=== PATIENT | female | born 1985 | race Caucasian/White ===

== ENCOUNTER 2018-01-16 12:49 | Emergency (ER) | payer MEDICAID ==
[~2018-01-16] VITALS: Ht 160 cm; Wt 65.9 kg
[~2018-01-16 12:49] MED LIST: BENZ2TAB58 PO; HALO10 PO; QUET200T PO
[2018-01-16 16:00] LABS: AMPHET/METH SCREEN,URINE NEGATIVE (NEGATIVE); BARBITURATE SCREEN, URINE NEGATIVE (NEGATIVE); BENZODIAZEPINES SCREEN,URINE NEGATIVE (NEGATIVE); CANNABINOID SCREEN,URINE NEGATIVE (NEGATIVE); COCAINE SCREEN,URINE NEGATIVE (NEGATIVE); METHADONE SCREEN, URINE NEGATIVE (NEGATIVE); OPIATE SCREEN,URINE NEGATIVE (NEGATIVE)
[2018-01-16 16:01] LABS: PHENCYCLIDINE SCREEN,URINE NEGATIVE (NEGATIVE)
[2018-01-16 16:20] LABS: APPEARANCE,URINE CLOUDY (CLEAR); BILIRUBIN,URINE NEGATIVE (NEGATIVE); GLUCOSE, URINE (UA) NEGATIVE (NEGATIVE); KETONES,URINE NEGATIVE (NEGATIVE); LEUKOCYTE ESTERASE ,URINE LARGE (NEGATIVE); NITRATE,URINE NEGATIVE (NEGATIVE); OCCULT BLOOD,URINE LARGE (NEGATIVE); PROTEIN,URINE POS 1+ (NEGATIVE); UROBILINOGEN,URINE 0.2 mg/dL (<=1.0)
[2018-01-16 16:22] LABS: EOSINOPHILS % (AUTO) 0.2 % (1.0-6.0); HEMATOCRIT 34.8 % (36-46); LYMPHOCYTES # (AUTO) 2.2 K/uL (1.0-4.8); LYMPHOCYTES % (AUTO) 36.9 % (22.0-44.0); MEAN CORPUSCULAR HEMOGLOBIN 24.6 pg (26.0-34.0); MEAN CORPUSCULAR HGB CONC 31.7 G/dL (31.0-37.0); MEAN CORPUSCULAR VOLUME 78 fL (80-100); MONOCYTES # (AUTO) 0.5 K/uL (0.1-1.0); MONOCYTES % (AUTO) 7.9 % (2.0-9.0); NEUTROPHILS # (AUTO) 3.3 K/uL (1.8-7.7); PLATELET COUNT (AUTO) 325 K/uL (150-450); RED BLOOD CELL COUNT(AUTO) 4.48 MIL/uL (4.00-5.20); RED CELL DISTRIBUTION WIDTH 19.6 % (11.5-14.5)
[2018-01-16 16:28] LABS: RBC,URINE 51-100 /HPF (0-2)
[2018-01-16 16:29] LABS: BACTERIA,URINE Moderate /HPF (None Seen); SQUAMOUS EPITHELIAL CELL,UR Few /LPF (None Seen); WBC,URINE 51-100 /HPF (0-5)
[2018-01-16 16:30] VITALS: BP 110/74
[2018-01-16 16:34] LABS: ANION GAP 10 mmol/L (8-16); CALCIUM, TOTAL 8.8 mg/dL (8.8-10.5); CARBON DIOXIDE 25 mmol/L (22-29); CHLORIDE 106 mmol/L (98-107); CREATININE 0.51 mg/dL (0.60-1.30); GLOMERULAR FILTR. RATE CALC > 60 mL/min (>60); GLUCOSE,RANDOM 91 mg/dL (70-110); SODIUM SERUM 141 mmol/L (136-145); UREA NITROGEN, BLOOD 10 mg/dL (7-18)
[2018-01-16 16:41] LABS: ALANINE AMINOTRANSFERASE 40 U/L (12-78); ALBUMIN 3.4 g/dL (3.4-5.0); ALKALINE PHOSPHATASE 101 U/L (46-116); ASPARTATE AMINOTRANSFERASE 26 U/L (15-37); BILIRUBIN,TOTAL 0.2 mg/dL (0.1-1.0)
== END 2018-01-16 18:00 | disposition home or self-care (01) ==
LOC: EMS 12:50
DX: F41.9 Anxiety disorder, unspecified (principal); N39.0 Urinary tract infection, site not specified; F31.9 Bipolar disorder, unspecified; F20.9 Schizophrenia, unspecified; F19.90 Other psychoactive substance use, unspecified, uncomplicated; Z88.8 Allergy status to other drugs, medicaments and biological substances
CPT/HCPCS: 87086; 93005; 99285

== ENCOUNTER 2018-02-07 13:13 | Inpatient (IN) | payer MEDICAID ==
[~2018-02-07] VITALS: Ht 157.5 cm; Wt 73.6 kg
[2018-02-07 12:30] VITALS: BP 104/89
[2018-02-07] MEDS ORDERED: ZOLPIDEM TARTRATE 10 MG TABLET PO PRN (13:30)
[2018-02-07] MEDS ORDERED: HALOPERIDOL 5 MG TABLET PO PRN (13:30)
[2018-02-07 14:58] LABS: EOSINOPHILS % (AUTO) 0.5 % (1.0-6.0); HEMATOCRIT 36.9 % (36-46); HEMOGLOBIN 11.7 g/dL (12.0-16.0); LYMPHOCYTES # (AUTO) 2.8 K/uL (1.0-4.8); LYMPHOCYTES % (AUTO) 29.8 % (22.0-44.0); MEAN CORPUSCULAR HEMOGLOBIN 25.3 pg (26.0-34.0); MEAN CORPUSCULAR HGB CONC 31.8 G/dL (31.0-37.0); MEAN CORPUSCULAR VOLUME 80 fL (80-100); MONOCYTES # (AUTO) 0.8 K/uL (0.1-1.0); MONOCYTES % (AUTO) 8.3 % (2.0-9.0); NEUTROPHILS # (AUTO) 5.7 K/uL (1.8-7.7); NEUTROPHILS % (AUTO) 60.4 % (40.0-70.0); PLATELET COUNT (AUTO) 294 K/uL (150-450); RED BLOOD CELL COUNT(AUTO) 4.64 MIL/uL (4.00-5.20); RED CELL DISTRIBUTION WIDTH 17.2 % (11.5-14.5)
[2018-02-07 15:19] LABS: ANION GAP 11 mmol/L (8-16); CALCIUM, TOTAL 9.4 mg/dL (8.8-10.5); CARBON DIOXIDE 24 mmol/L (22-29); CHLORIDE 103 mmol/L (98-107); CREATININE 0.66 mg/dL (0.60-1.30); GLOMERULAR FILTR. RATE CALC > 60 mL/min (>60); GLUCOSE,RANDOM 97 mg/dL (70-110); POTASSIUM 3.8 mmol/L (3.5-5.1); SODIUM SERUM 138 mmol/L (136-145); UREA NITROGEN, BLOOD 12 mg/dL (7-18)
[2018-02-07 15:24] LABS: ALANINE AMINOTRANSFERASE 39 U/L (12-78); ALKALINE PHOSPHATASE 88 U/L (46-116); ASPARTATE AMINOTRANSFERASE 29 U/L (15-37); BILIRUBIN,TOTAL 0.6 mg/dL (0.1-1.0); TOTAL PROTEIN, SERUM 7.5 g/dL (6.4-8.2)
[2018-02-07] MEDS ORDERED: FLUO-191 PO (16:03)
[2018-02-07 17:45] VITALS: BP 126/69
[2018-02-07] MEDS: LORazepam 2 MG TABLET PO PRN (17:56)
[2018-02-07] MEDS ORDERED: MAGNESIUM HYDROXIDE SUSPENSION 30 ML UDCUP PO PRN (18:45)
[2018-02-07] MEDS ORDERED: LOPERAMIDE HCL 2 MG CAPSULE PO PRN (18:45)
[2018-02-07] MEDS ORDERED: PETROLATUM,WHITE 71 GM JELLY TP PRN (18:45)
[2018-02-07] MEDS ORDERED: GuaiFENesin/D-METHORPHAN [SUGAR-FREE] 200-20MG/10 ML SYRUP UDCUP PO PRN (18:45)
[2018-02-07] MEDS ORDERED: MAG HYDROX/AL HYDROX/SIMETH ES 30 ML SUSPENSION UDCUP PO PRN (18:45)
[2018-02-07] MEDS ORDERED: DOCUSATE SODIUM 100 MG CAPSULE PO PRN (18:45)
[2018-02-07] MEDS ORDERED: NICOTINE 14 MG/24 HOUR PATCH TD PRN (18:45)
[2018-02-07] MEDS ORDERED: CloNIDine HCL 0.1 MG TABLET PO PRN (18:45)
[2018-02-07] MEDS ORDERED: ONDANSETRON HCL 4 MG TABLET PO PRN (18:45)
[2018-02-07] MEDS ORDERED: ACETAMINOPHEN 325 MG TABLET PO PRN (18:45)
[2018-02-07] MEDS ORDERED: ALBUTEROL SULFATE HFA 90 MCG/PUFF 8 GM INHALER IH PRN (18:45)
[2018-02-07] MEDS: LevETIRAcetam 500 MG TABLET PO SCH (19:48)
[2018-02-08 06:11] VITALS: BP 106/67
[2018-02-08 08:39] VITALS: BP 93/68
[2018-02-08 08:42] LABS: BASOPHILS % (AUTO) 0.7 % (0.0-2.0); EOSINOPHILS % (AUTO) 0.5 % (1.0-6.0); HEMATOCRIT 36.4 % (36-46); HEMOGLOBIN 11.8 g/dL (12.0-16.0); LYMPHOCYTES # (AUTO) 1.9 K/uL (1.0-4.8); LYMPHOCYTES % (AUTO) 43.8 % (22.0-44.0); MEAN CORPUSCULAR HEMOGLOBIN 25.7 pg (26.0-34.0); MEAN CORPUSCULAR HGB CONC 32.4 G/dL (31.0-37.0); MEAN CORPUSCULAR VOLUME 79 fL (80-100); MONOCYTES # (AUTO) 0.3 K/uL (0.1-1.0); MONOCYTES % (AUTO) 8.1 % (2.0-9.0); NEUTROPHILS % (AUTO) 46.9 % (40.0-70.0); PLATELET COUNT (AUTO) 270 K/uL (150-450); RED CELL DISTRIBUTION WIDTH 17.1 % (11.5-14.5)
[2018-02-08] MEDS ORDERED: LevETIRAcetam 500 MG TABLET PO SCH (09:00)
[2018-02-08 09:04] LABS: HEMOGLOBIN A1C 5.1 % (4.5-6.2)
[2018-02-08 09:33] LABS: ALANINE AMINOTRANSFERASE 35 U/L (12-78); ALBUMIN 3.6 g/dL (3.4-5.0); ALKALINE PHOSPHATASE 85 U/L (46-116); ANION GAP 11 mmol/L (8-16); ASPARTATE AMINOTRANSFERASE 24 U/L (15-37); BILIRUBIN,TOTAL 0.6 mg/dL (0.1-1.0); CARBON DIOXIDE 25 mmol/L (22-29); CHLORIDE 103 mmol/L (98-107); CHOLESTEROL 145 mg/dL (131-200); CREATININE 0.51 mg/dL (0.60-1.30); GLOMERULAR FILTR. RATE CALC > 60 mL/min (>60); GLUCOSE,RANDOM 83 mg/dL (70-110); HDL CHOLESTEROL 74 mg/dL (40-60); LDL CHOL (CALC.) 62 mg/dL (0-130); POTASSIUM 4.4 mmol/L (3.5-5.1); SODIUM SERUM 139 mmol/L (136-145); THYROID STIMULATING HORMONE 1.15 uIU/mL (0.36-3.74); TOTAL PROTEIN, SERUM 6.6 g/dL (6.4-8.2); TRIGLYCERIDES 43 mg/dL (15-150); UREA NITROGEN, BLOOD 11 mg/dL (7-18)
[2018-02-08] MEDS: LevETIRAcetam 500 MG TABLET PO SCH ×2 (09:47→16:50)
[2018-02-08 17:14] VITALS: BP 107/58
[2018-02-08] MEDS: IBUPROFEN 400 MG TABLET PO PRN (17:29)
[2018-02-08] MEDS: LORazepam 2 MG TABLET PO PRN (18:23)
[2018-02-09 06:10] VITALS: BP 108/62
[2018-02-09 08:00] VITALS: BP 112/68
[2018-02-09] MEDS: LevETIRAcetam 500 MG TABLET PO SCH ×2 (08:52→16:06)
[2018-02-09] MEDS: ARIPiprazole 10 MG TABLET PO SCH (08:52)
[2018-02-09] MEDS: FLUoxetine HCL 20 MG CAPSULE PO SCH (08:52)
[2018-02-09] MEDS: LORazepam 2 MG TABLET PO PRN (09:26)
[2018-02-09 16:05] VITALS: BP 102/60
[2018-02-10 05:50] VITALS: BP 110/62
[2018-02-10 08:20] VITALS: BP 113/77
[2018-02-10 08:23] LABS: BASOPHILS % (AUTO) 0.3 % (0.0-2.0); EOSINOPHILS % (AUTO) 0.3 % (1.0-6.0); HEMATOCRIT 35.4 % (36-46); HEMOGLOBIN 11.5 g/dL (12.0-16.0); LYMPHOCYTES # (AUTO) 2.3 K/uL (1.0-4.8); LYMPHOCYTES % (AUTO) 46.6 % (22.0-44.0); MEAN CORPUSCULAR HEMOGLOBIN 25.6 pg (26.0-34.0); MEAN CORPUSCULAR HGB CONC 32.4 G/dL (31.0-37.0); MEAN CORPUSCULAR VOLUME 79 fL (80-100); MONOCYTES # (AUTO) 0.4 K/uL (0.1-1.0); MONOCYTES % (AUTO) 7.2 % (2.0-9.0); NEUTROPHILS # (AUTO) 2.3 K/uL (1.8-7.7); NEUTROPHILS % (AUTO) 45.6 % (40.0-70.0); PLATELET COUNT (AUTO) 269 K/uL (150-450); RED BLOOD CELL COUNT(AUTO) 4.47 MIL/uL (4.00-5.20); RED CELL DISTRIBUTION WIDTH 16.8 % (11.5-14.5)
[2018-02-10] MEDS: FLUoxetine HCL 20 MG CAPSULE PO SCH (09:04)
[2018-02-10] MEDS: ARIPiprazole 10 MG TABLET PO SCH (09:04)
[2018-02-10] MEDS: LevETIRAcetam 500 MG TABLET PO SCH ×2 (09:04→16:33)
[2018-02-10 16:11] VITALS: BP 109/65
[2018-02-11 06:22] VITALS: BP 115/69
[2018-02-11] MEDS: FERROUS SULFATE 325 MG EC TABLET PO SCH ×3 (06:34→16:14)
[2018-02-11 08:27] VITALS: BP 110/53
[2018-02-11] MEDS: FLUoxetine HCL 20 MG CAPSULE PO SCH (08:27)
[2018-02-11] MEDS: LevETIRAcetam 500 MG TABLET PO SCH ×2 (08:27→16:13)
[2018-02-11] MEDS: ARIPiprazole 10 MG TABLET PO SCH (08:27)
[2018-02-11] MEDS: LORazepam 2 MG TABLET PO PRN (09:13)
[2018-02-11 16:12] VITALS: BP 110/66
[2018-02-12 04:25] VITALS: BP 106/62
[2018-02-12] MEDS: FERROUS SULFATE 325 MG EC TABLET PO SCH ×3 (06:35→16:11)
[2018-02-12 08:33] VITALS: BP 111/62
[2018-02-12] MEDS: LevETIRAcetam 500 MG TABLET PO SCH ×2 (09:13→16:11)
[2018-02-12] MEDS: FLUoxetine HCL 20 MG CAPSULE PO SCH (09:13)
[2018-02-12] MEDS: ARIPiprazole 15 MG TABLET PO SCH (09:13)
[2018-02-12 16:03] VITALS: BP 110/80
[2018-02-12] MEDS: IBUPROFEN 400 MG TABLET PO PRN (17:09)
[2018-02-12] MEDS: HYPROMELLOSE 0.5% 15 ML OPHTHALMIC SOLUTION OU PRN (21:51)
[2018-02-13] VITALS (12 sets, daily range): BP systolic 108–129; BP diastolic 60–76
[2018-02-13] MEDS: FERROUS SULFATE 325 MG EC TABLET PO SCH ×3 (06:44→16:44)
[2018-02-13] MEDS: LevETIRAcetam 500 MG TABLET PO SCH ×2 (08:49→16:44)
[2018-02-13] MEDS: IBUPROFEN 400 MG TABLET PO PRN (08:49)
[2018-02-13] MEDS: ARIPiprazole 15 MG TABLET PO SCH (08:49)
[2018-02-13] MEDS: FLUoxetine HCL 20 MG CAPSULE PO SCH (08:49)
[2018-02-13] MEDS: HYPROMELLOSE 0.5% 15 ML OPHTHALMIC SOLUTION OU PRN ×2 (09:15→15:00)
[2018-02-13] MEDS ORDERED: LEVE500T53 PO (19:58)
[2018-02-14 01:00] VITALS: BP 108/62
[2018-02-14] MEDS: FERROUS SULFATE 325 MG EC TABLET PO SCH ×3 (06:57→16:51)
[2018-02-14] MEDS: LevETIRAcetam 500 MG TABLET PO SCH ×2 (09:30→16:51)
[2018-02-14] MEDS: FLUoxetine HCL 20 MG CAPSULE PO SCH (09:30)
[2018-02-14] MEDS: ARIPiprazole 15 MG TABLET PO SCH (09:31)
[2018-02-14] MEDS: LORazepam 2 MG TABLET PO PRN (16:51)
[2018-02-14 19:50] VITALS: BP 111/66
[2018-02-15] MEDS: FERROUS SULFATE 325 MG EC TABLET PO SCH ×2 (06:52→14:01)
[2018-02-15 08:05] VITALS: BP 116/71
[2018-02-15] MEDS: ARIPiprazole 15 MG TABLET PO SCH (09:08)
[2018-02-15] MEDS: LevETIRAcetam 500 MG TABLET PO SCH (09:09)
[2018-02-15] MEDS: FLUoxetine HCL 20 MG CAPSULE PO SCH (09:09)
[2018-02-15] MEDS ORDERED: FERR-89 PO (13:37)
[2018-02-15] MEDS ORDERED: ARIP15TA2 PO (13:37)
== END 2018-02-15 15:45 | disposition home or self-care (01) | DRG 750 ==
LOC: BV PSY EVL 13:13 → B2S 17:34 → 3EI 02-14 00:04
DX: F25.1 Schizoaffective disorder, depressive type (principal); G40.909 Epilepsy, unspecified, not intractable, without status epilepticus; R45.851 Suicidal ideations; D64.9 Anemia, unspecified; F10.10 Alcohol abuse, uncomplicated; F15.10 Other stimulant abuse, uncomplicated; D72.819 Decreased white blood cell count, unspecified; F41.9 Anxiety disorder, unspecified; F19.10 Other psychoactive substance abuse, uncomplicated; Z79.899 Other long term (current) drug therapy; Z91.5 Personal history of self-harm; Z88.8 Allergy status to other drugs, medicaments and biological substances; Z71.51 Drug abuse counseling and surveillance of drug abuser; Z71.41 Alcohol abuse counseling and surveillance of alcoholic
CPT/HCPCS: 70450; 83036; 84443; 87081; 99285; G0480

== ENCOUNTER 2018-02-13 19:36 | Emergency (ER) | payer MEDICAID ==
[~2018-02-13] VITALS: Ht 157.5 cm; Wt 80.0 kg
[~2018-02-13 19:36] MED LIST changes: +FLUO-191 PO
[2018-02-13] MEDS ORDERED: LEVE500T53 PO (19:58)
[2018-02-13 20:45] LABS: BASOPHILS % (AUTO) 0.7 % (0.0-2.0); EOSINOPHILS % (AUTO) 0.3 % (1.0-6.0); HEMATOCRIT 35.9 % (36-46); HEMOGLOBIN 11.5 g/dL (12.0-16.0); LYMPHOCYTES # (AUTO) 2.5 K/uL (1.0-4.8); LYMPHOCYTES % (AUTO) 41.9 % (22.0-44.0); MEAN CORPUSCULAR HEMOGLOBIN 25.5 pg (26.0-34.0); MEAN CORPUSCULAR HGB CONC 32.1 G/dL (31.0-37.0); MEAN CORPUSCULAR VOLUME 80 fL (80-100); MONOCYTES # (AUTO) 0.5 K/uL (0.1-1.0); MONOCYTES % (AUTO) 8.2 % (2.0-9.0); NEUTROPHILS # (AUTO) 2.9 K/uL (1.8-7.7); NEUTROPHILS % (AUTO) 48.9 % (40.0-70.0); PLATELET COUNT (AUTO) 262 K/uL (150-450); RED BLOOD CELL COUNT(AUTO) 4.51 MIL/uL (4.00-5.20); RED CELL DISTRIBUTION WIDTH 16.9 % (11.5-14.5)
[2018-02-13 20:58] LABS: ANION GAP 8 mmol/L (8-16); CALCIUM, TOTAL 8.5 mg/dL (8.8-10.5); CARBON DIOXIDE 26 mmol/L (22-29); CHLORIDE 106 mmol/L (98-107); CREATININE 0.71 mg/dL (0.60-1.30); GLOMERULAR FILTR. RATE CALC > 60 mL/min (>60); GLUCOSE,RANDOM 91 mg/dL (70-110); POTASSIUM 4.2 mmol/L (3.5-5.1); SODIUM SERUM 140 mmol/L (136-145); UREA NITROGEN, BLOOD 15 mg/dL (7-18)
[2018-02-13 21:04] LABS: ALANINE AMINOTRANSFERASE 39 U/L (12-78); ALBUMIN 3.3 g/dL (3.4-5.0); ALKALINE PHOSPHATASE 78 U/L (46-116); ASPARTATE AMINOTRANSFERASE 20 U/L (15-37); BILIRUBIN,TOTAL 0.1 mg/dL (0.1-1.0); TOTAL PROTEIN, SERUM 6.6 g/dL (6.4-8.2)
[2018-02-13] MEDS ORDERED: LORazepam 2 MG TABLET PO ONE (22:00)
[2018-02-13] MEDS ORDERED: LevETIRAcetam 500 MG TABLET PO ONE (22:00)
[2018-02-13 23:48] VITALS: BP 113/66
[2018-02-15] MEDS ORDERED: FERR-89 PO (13:37)
[2018-02-15] MEDS ORDERED: ARIP15TA2 PO (13:37)
== END 2018-02-14 00:48 | disposition other institution (70) ==
LOC: EMS 19:37
DX: G40.909 Epilepsy, unspecified, not intractable, without status epilepticus (principal); F31.9 Bipolar disorder, unspecified; F20.9 Schizophrenia, unspecified; Z79.899 Other long term (current) drug therapy; Z88.8 Allergy status to other drugs, medicaments and biological substances
CPT/HCPCS: 99285

== ENCOUNTER 2018-03-21 11:16 | Emergency (ER) | payer MEDICAID ==
[~2018-03-21] VITALS: Ht 157.5 cm; Wt 76.4 kg
[~2018-03-21 11:16] MED LIST changes: +ARIP882S IM; -BENZ2TAB58 PO; +FERR-89 PO; -HALO10 PO; +LEVE500T53 PO; -QUET200T PO
[2018-03-21] MEDS ORDERED: ARIP15TA2 PO (11:37)
[2018-03-21] MEDS ORDERED: LORazepam 2 MG/ML VIAL IM ONE (12:00)
[2018-03-21 12:30] VITALS: BP 110/61
== END 2018-03-21 13:11 | disposition home or self-care (01) ==
LOC: EMS 11:17
DX: G40.909 Epilepsy, unspecified, not intractable, without status epilepticus (principal); F31.9 Bipolar disorder, unspecified; F20.9 Schizophrenia, unspecified; Z88.8 Allergy status to other drugs, medicaments and biological substances
CPT/HCPCS: 96372; 99283; J2060

== ENCOUNTER 2018-03-23 11:50 | Inpatient (IN) | payer MEDICAID ==
[~2018-03-23] VITALS: Ht 157.5 cm; Wt 74.8 kg
[~2018-03-23 11:50] MED LIST changes: +ARIP15TA2 PO
[2018-03-23 12:59] LABS: AMPHET/METH SCREEN,URINE NEGATIVE (NEGATIVE); BARBITURATE SCREEN, URINE NEGATIVE (NEGATIVE); BENZODIAZEPINES SCREEN,URINE NEGATIVE (NEGATIVE); CANNABINOID SCREEN,URINE NEGATIVE (NEGATIVE); COCAINE SCREEN,URINE NEGATIVE (NEGATIVE); METHADONE SCREEN, URINE NEGATIVE (NEGATIVE); OPIATE SCREEN,URINE NEGATIVE (NEGATIVE); PHENCYCLIDINE SCREEN,URINE NEGATIVE (NEGATIVE)
[2018-03-23 13:04] LABS: BASOPHILS % (AUTO) 0.7 % (0.0-2.0); EOSINOPHILS % (AUTO) 0 % (1.0-6.0); HEMATOCRIT 38.8 % (36-46); HEMOGLOBIN 12.5 g/dL (12.0-16.0); LYMPHOCYTES # (AUTO) 1.9 K/uL (1.0-4.8); LYMPHOCYTES % (AUTO) 28.8 % (22.0-44.0); MEAN CORPUSCULAR HEMOGLOBIN 26.7 pg (26.0-34.0); MEAN CORPUSCULAR HGB CONC 32.3 G/dL (31.0-37.0); MEAN CORPUSCULAR VOLUME 83 fL (80-100); MONOCYTES # (AUTO) 0.3 K/uL (0.1-1.0); MONOCYTES % (AUTO) 4.6 % (2.0-9.0); NEUTROPHILS # (AUTO) 4.3 K/uL (1.8-7.7); NEUTROPHILS % (AUTO) 65.9 % (40.0-70.0); PLATELET COUNT (AUTO) 290 K/uL (150-450); RED CELL DISTRIBUTION WIDTH 17.8 % (11.5-14.5)
[2018-03-23 13:08] LABS: ANION GAP 7 mmol/L (8-16); CALCIUM, TOTAL 8.7 mg/dL (8.8-10.5); CARBON DIOXIDE 28 mmol/L (22-29); CHLORIDE 102 mmol/L (98-107); CREATININE 0.59 mg/dL (0.60-1.30); GLOMERULAR FILTR. RATE CALC > 60 mL/min (>60); GLUCOSE,RANDOM 94 mg/dL (70-110); POTASSIUM 4.6 mmol/L (3.5-5.1); SODIUM SERUM 137 mmol/L (136-145); UREA NITROGEN, BLOOD 7 mg/dL (7-18)
[2018-03-23 13:15] LABS: ALANINE AMINOTRANSFERASE 27 U/L (12-78); ALBUMIN 3.5 g/dL (3.4-5.0); ALKALINE PHOSPHATASE 78 U/L (46-116); ASPARTATE AMINOTRANSFERASE 17 U/L (15-37); BILIRUBIN,TOTAL 0.4 mg/dL (0.1-1.0); TOTAL PROTEIN, SERUM 6.9 g/dL (6.4-8.2)
[2018-03-23] MEDS ORDERED: ZOLPIDEM TARTRATE 10 MG TABLET PO PRN (13:15)
[2018-03-23 13:33] LABS: HCG,QUANTITATIVE < 1 mIU/mL (0-6)
[2018-03-23 16:00] VITALS: BP 113/73
[2018-03-23] MEDS ORDERED: GuaiFENesin/D-METHORPHAN [SUGAR-FREE] 200-20MG/10 ML SYRUP UDCUP PO PRN (17:15)
[2018-03-23] MEDS ORDERED: ALBUTEROL SULFATE HFA 90 MCG/PUFF 8 GM INHALER IH PRN (17:15)
[2018-03-23] MEDS ORDERED: DOCUSATE SODIUM 100 MG CAPSULE PO PRN (17:15)
[2018-03-23] MEDS ORDERED: ACETAMINOPHEN 325 MG TABLET PO PRN (17:15)
[2018-03-23] MEDS ORDERED: LevETIRAcetam 500 MG TABLET PO SCH (17:15)
[2018-03-23] MEDS ORDERED: PETROLATUM,WHITE 71 GM JELLY TP PRN (17:15)
[2018-03-23] MEDS ORDERED: LOPERAMIDE HCL 2 MG CAPSULE PO PRN (17:15)
[2018-03-23] MEDS ORDERED: MAGNESIUM HYDROXIDE SUSPENSION 30 ML UDCUP PO PRN (17:15)
[2018-03-23] MEDS: FERROUS SULFATE 325 MG EC TABLET PO SCH (17:15)
[2018-03-23] MEDS ORDERED: ONDANSETRON HCL 4 MG TABLET PO PRN (17:15)
[2018-03-23] MEDS ORDERED: MAG HYDROX/AL HYDROX/SIMETH ES 30 ML SUSPENSION UDCUP PO PRN (17:15)
[2018-03-23] MEDS ORDERED: IBUPROFEN 400 MG TABLET PO PRN (17:15)
[2018-03-23] MEDS ORDERED: CloNIDine HCL 0.1 MG TABLET PO PRN (17:15)
[2018-03-24] MEDS: FERROUS SULFATE 325 MG EC TABLET PO SCH ×3 (06:41→17:55)
[2018-03-24 06:53] VITALS: BP 116/75
[2018-03-24 07:02] LABS: HEMOGLOBIN A1C 5.3 % (4.5-6.2)
[2018-03-24 07:33] LABS: CHOL/HDL RATIO 2.6 (3.9-5.7)
[2018-03-24 07:56] LABS: THYROID STIMULATING HORMONE 1.89 uIU/mL (0.36-3.74)
[2018-03-24] MEDS ORDERED: LORazepam 2 MG/ML VIAL ONE (08:33)
[2018-03-24 08:44] LABS: GLUCOMETER DEV NAME(LOC) 3EI C; GLUCOSE,POINT OF CARE 97 MG/DL (70-110)
[2018-03-24] MEDS ORDERED: LORazepam 2 MG/ML VIAL IM ONE (08:45)
[2018-03-24] MEDS ORDERED: LevETIRAcetam 500 MG TABLET PO SCH (09:00)
[2018-03-24] MEDS: LevETIRAcetam 500 MG TABLET PO SCH ×2 (10:12→17:55)
[2018-03-24] MEDS: FLUoxetine HCL 20 MG CAPSULE PO SCH (10:13)
[2018-03-24] MEDS: TOPIRAMATE 25 MG TABLET PO SCH ×2 (10:15→17:55)
[2018-03-24 13:41] VITALS: BP 127/74
[2018-03-24 22:46] VITALS: BP 125/74
[2018-03-25 06:56] VITALS: BP 110/64
[2018-03-25] MEDS: FERROUS SULFATE 325 MG EC TABLET PO SCH ×3 (07:05→16:40)
[2018-03-25 08:00] VITALS: BP 128/72
[2018-03-25] MEDS: FLUoxetine HCL 20 MG CAPSULE PO SCH (09:10)
[2018-03-25] MEDS: LevETIRAcetam 500 MG TABLET PO SCH ×2 (09:10→16:40)
[2018-03-25] MEDS ORDERED: LORazepam 2 MG/ML VIAL IM ONE (09:15)
[2018-03-25] MEDS ORDERED: LORazepam 2 MG/ML VIAL IM PRN (10:00)
[2018-03-25] MEDS: OXcarbazepine 300 MG TABLET PO SCH (16:39)
[2018-03-25] MEDS ORDERED: TOPIRAMATE 100 MG TABLET PO SCH (17:00)
[2018-03-25] MEDS ORDERED: OXcarbazepine 300 MG TABLET PO SCH (17:00)
[2018-03-25 21:01] VITALS: BP 114/69
[2018-03-26] MEDS: FERROUS SULFATE 325 MG EC TABLET PO SCH ×3 (07:07→17:27)
[2018-03-26 08:02] VITALS: BP 103/66
[2018-03-26] MEDS: OXcarbazepine 300 MG TABLET PO SCH ×2 (08:13→17:27)
[2018-03-26] MEDS: FLUoxetine HCL 20 MG CAPSULE PO SCH (08:13)
[2018-03-26] MEDS: LevETIRAcetam 500 MG TABLET PO SCH ×2 (08:13→17:28)
[2018-03-26] MEDS: LORazepam 2 MG TABLET PO PRN (17:45)
[2018-03-26 19:33] VITALS: BP 103/67
[2018-03-27] MEDS: FERROUS SULFATE 325 MG EC TABLET PO SCH ×3 (06:58→18:13)
[2018-03-27] MEDS: LevETIRAcetam 500 MG TABLET PO SCH ×2 (07:45→18:13)
[2018-03-27] MEDS: FLUoxetine HCL 20 MG CAPSULE PO SCH (07:46)
[2018-03-27] MEDS: OXcarbazepine 300 MG TABLET PO SCH ×2 (07:46→18:13)
[2018-03-27] MEDS: LORazepam 2 MG TABLET PO PRN (07:47)
[2018-03-27 09:52] VITALS: BP 113/65
[2018-03-27] MEDS: HALOPERIDOL 5 MG TABLET PO PRN (18:14)
[2018-03-27 20:40] VITALS: BP 114/85
[2018-03-28] MEDS: FERROUS SULFATE 325 MG EC TABLET PO SCH ×3 (07:09→16:37)
[2018-03-28 08:00] VITALS: BP 105/77
[2018-03-28] MEDS: OXcarbazepine 300 MG TABLET PO SCH ×2 (08:00→16:37)
[2018-03-28] MEDS: FLUoxetine HCL 20 MG CAPSULE PO SCH (08:00)
[2018-03-28] MEDS: LevETIRAcetam 500 MG TABLET PO SCH ×2 (08:00→16:36)
[2018-03-28 16:00] VITALS: BP 120/77
[2018-03-29] MEDS: HALOPERIDOL 5 MG TABLET PO PRN (05:38)
[2018-03-29] MEDS: FERROUS SULFATE 325 MG EC TABLET PO SCH ×2 (07:23→14:30)
[2018-03-29] MEDS: LevETIRAcetam 500 MG TABLET PO SCH (07:23)
[2018-03-29] MEDS: OXcarbazepine 300 MG TABLET PO SCH (07:23)
[2018-03-29 08:10] VITALS: BP 113/68
[2018-03-29] MEDS: FLUoxetine HCL 20 MG CAPSULE PO SCH (08:10)
[2018-03-29] MEDS: LORazepam 2 MG TABLET PO PRN (08:15)
[2018-03-29] MEDS ORDERED: ARIPiprazole LAUROXIL ER SUSPENSION 882 MG/3.2 ML SYRINGE IM SCH (09:15)
[2018-03-29] MEDS ORDERED: FLUO-191 PO (09:19)
[2018-03-29] MEDS ORDERED: ARIP882S IM (09:19)
[2018-03-29 09:37] VITALS: BP 113/68
[2018-03-29] MEDS ORDERED: TUBERCULIN, PURIFIED PROTEIN DERIVATIVE 5 TU/0.1 ML SYG ID ONE (11:45)
[2018-03-29] MEDS ORDERED: OXCA300T29 PO (12:04)
[2018-03-30] MEDS ORDERED: ARIPiprazole LAUROXIL ER SUSPENSION 882 MG/3.2 ML SYRINGE IM SCH (09:00)
== END 2018-03-29 16:00 | disposition home or self-care (01) | DRG 750 ==
LOC: EMS 11:50 → 3EI 13:44
DX: F25.1 Schizoaffective disorder, depressive type (principal); F15.20 Other stimulant dependence, uncomplicated; D64.9 Anemia, unspecified; F19.10 Other psychoactive substance abuse, uncomplicated; G40.909 Epilepsy, unspecified, not intractable, without status epilepticus; Z79.899 Other long term (current) drug therapy; Z88.8 Allergy status to other drugs, medicaments and biological substances
CPT/HCPCS: 83036; 84443; 87081; G0480; G0482; J2060

== ENCOUNTER 2018-03-31 15:10 | Emergency (ER) | payer MEDICAID ==
[~2018-03-31] VITALS: Ht 154.9 cm; Wt 77.3 kg
[~2018-03-31 15:10] MED LIST changes: -ARIP15TA2 PO; +OXCA300T29 PO
[2018-03-31] MEDS ORDERED: LORazepam 2 MG/ML VIAL IVP ONE (15:30)
[2018-03-31 15:33] LABS: BASOPHILS % (AUTO) 0.4 % (0.0-2.0); EOSINOPHILS % (AUTO) 0 % (1.0-6.0); HEMATOCRIT 36.3 % (36-46); LYMPHOCYTES # (AUTO) 2.4 K/uL (1.0-4.8); LYMPHOCYTES % (AUTO) 30.7 % (22.0-44.0); MEAN CORPUSCULAR HEMOGLOBIN 27.6 pg (26.0-34.0); MEAN CORPUSCULAR VOLUME 84 fL (80-100); MONOCYTES # (AUTO) 0.7 K/uL (0.1-1.0); MONOCYTES % (AUTO) 8.3 % (2.0-9.0); NEUTROPHILS # (AUTO) 4.8 K/uL (1.8-7.7); NEUTROPHILS % (AUTO) 60.6 % (40.0-70.0); PLATELET COUNT (AUTO) 297 K/uL (150-450); RED BLOOD CELL COUNT(AUTO) 4.34 MIL/uL (4.00-5.20); RED CELL DISTRIBUTION WIDTH 17.9 % (11.5-14.5)
[2018-03-31 15:49] LABS: ALANINE AMINOTRANSFERASE 23 U/L (12-78); ALBUMIN 3.3 g/dL (3.4-5.0); ALKALINE PHOSPHATASE 83 U/L (46-116); ANION GAP 9 mmol/L (8-16); ASPARTATE AMINOTRANSFERASE 16 U/L (15-37); BILIRUBIN,TOTAL 0.1 mg/dL (0.1-1.0); CALCIUM, TOTAL 8.4 mg/dL (8.8-10.5); CARBON DIOXIDE 28 mmol/L (22-29); CHLORIDE 103 mmol/L (98-107); CREATININE 0.55 mg/dL (0.60-1.30); GLOMERULAR FILTR. RATE CALC > 60 mL/min (>60); GLUCOSE,RANDOM 100 mg/dL (70-110); POTASSIUM 4.1 mmol/L (3.5-5.1); SODIUM SERUM 140 mmol/L (136-145); TOTAL PROTEIN, SERUM 6.6 g/dL (6.4-8.2); UREA NITROGEN, BLOOD 13 mg/dL (7-18)
[2018-03-31 16:54] LABS: AMPHET/METH SCREEN,URINE NEGATIVE (NEGATIVE); BARBITURATE SCREEN, URINE NEGATIVE (NEGATIVE); BENZODIAZEPINES SCREEN,URINE NEGATIVE (NEGATIVE); CANNABINOID SCREEN,URINE NEGATIVE (NEGATIVE); COCAINE SCREEN,URINE NEGATIVE (NEGATIVE); METHADONE SCREEN, URINE NEGATIVE (NEGATIVE); OPIATE SCREEN,URINE NEGATIVE (NEGATIVE)
[2018-03-31 16:55] LABS: PHENCYCLIDINE SCREEN,URINE NEGATIVE (NEGATIVE)
[2018-03-31 17:57] VITALS: BP 129/86
== END 2018-03-31 17:59 | disposition home or self-care (01) ==
LOC: EMS 15:13
DX: F25.1 Schizoaffective disorder, depressive type (principal); G40.909 Epilepsy, unspecified, not intractable, without status epilepticus; F41.9 Anxiety disorder, unspecified; F31.9 Bipolar disorder, unspecified; Z11.1 Encounter for screening for respiratory tuberculosis; Z88.8 Allergy status to other drugs, medicaments and biological substances
CPT/HCPCS: 96374; J2060

== ENCOUNTER 2019-01-13 18:50 | Emergency (ER) | payer MEDICAID ==
[~2019-01-13] VITALS: Ht 157.5 cm; Wt 60.5 kg
[2019-01-13 19:55] LABS: GLUCOSE,POINT OF CARE 91 MG/DL (70-110)
[2019-01-13] MEDS ORDERED: DEXAMETHASONE 4 MG TABLET PO ONE (20:30)
[2019-01-13 21:21] VITALS: BP 147/54
== END 2019-01-13 21:47 | disposition home or self-care (01) ==
LOC: EMS 18:53
DX: J03.90 Acute tonsillitis, unspecified (principal); F19.10 Other psychoactive substance abuse, uncomplicated; F31.9 Bipolar disorder, unspecified; F20.9 Schizophrenia, unspecified; F17.210 Nicotine dependence, cigarettes, uncomplicated; Z88.8 Allergy status to other drugs, medicaments and biological substances
CPT/HCPCS: 82962; 87430; 99283; J8540

== ENCOUNTER 2019-03-05 09:36 | Emergency (ER) | payer MEDICAID ==
[~2019-03-05] VITALS: Ht 162.6 cm; Wt 63.6 kg
[2019-03-05 09:42] VITALS: BP 103/58
[2019-03-05] MEDS ORDERED: HYD25 PO (10:08)
[2019-03-05] MEDS ORDERED: TRAZ-252 PO (10:08)
[2019-03-05] MEDS ORDERED: DIVA-78 PO (10:08)
[2019-03-05 10:27] LABS: BASOPHILS % (AUTO) 0.9 % (0.0-2.0); EOSINOPHILS % (AUTO) 1.4 % (1.0-6.0); HEMATOCRIT 30.2 % (36-46); HEMOGLOBIN 9.5 g/dL (12.0-16.0); LYMPHOCYTES # (AUTO) 1.8 K/uL (1.0-4.8); LYMPHOCYTES % (AUTO) 34.3 % (22.0-44.0); MEAN CORPUSCULAR HEMOGLOBIN 23.8 pg (26.0-34.0); MEAN CORPUSCULAR HGB CONC 31.6 G/dL (31.0-37.0); MEAN CORPUSCULAR VOLUME 75 fL (80-100); MONOCYTES # (AUTO) 0.4 K/uL (0.1-1.0); MONOCYTES % (AUTO) 8.1 % (2.0-9.0); NEUTROPHILS # (AUTO) 2.9 K/uL (1.8-7.7); NEUTROPHILS % (AUTO) 55.3 % (40.0-70.0); PLATELET COUNT (AUTO) 339 K/uL (150-450); RED CELL DISTRIBUTION WIDTH 20.7 % (11.5-14.5)
[2019-03-05 10:52] LABS: ANION GAP 7 mmol/L (8-16); CALCIUM, TOTAL 8.3 mg/dL (8.8-10.5); CARBON DIOXIDE 30 mmol/L (22-29); CHLORIDE 105 mmol/L (98-107); CREATININE 0.54 mg/dL (0.60-1.30); GLOMERULAR FILTR. RATE CALC > 60 mL/min (>60); GLUCOSE,RANDOM 89 mg/dL (70-110); POTASSIUM 4.6 mmol/L (3.5-5.1); SODIUM SERUM 142 mmol/L (136-145); UREA NITROGEN, BLOOD 12 mg/dL (7-18)
[2019-03-05 10:58] LABS: ALANINE AMINOTRANSFERASE 18 U/L (12-78); ALBUMIN 3.2 g/dL (3.4-5.0); ALKALINE PHOSPHATASE 53 U/L (46-116); ASPARTATE AMINOTRANSFERASE 23 U/L (15-37); BILIRUBIN,TOTAL 0.3 mg/dL (0.1-1.0); TOTAL PROTEIN, SERUM 6.7 g/dL (6.4-8.2)
[2019-03-05 12:23] LABS: AMPHET/METH SCREEN,URINE NEGATIVE (NEGATIVE); BARBITURATE SCREEN, URINE NEGATIVE (NEGATIVE); BENZODIAZEPINES SCREEN,URINE NEGATIVE (NEGATIVE); CANNABINOID SCREEN,URINE NEGATIVE (NEGATIVE); COCAINE SCREEN,URINE NEGATIVE (NEGATIVE); METHADONE SCREEN, URINE NEGATIVE (NEGATIVE); OPIATE SCREEN,URINE NEGATIVE (NEGATIVE)
[2019-03-05 12:26] LABS: PHENCYCLIDINE SCREEN,URINE NEGATIVE (NEGATIVE)
== END 2019-03-05 12:19 | disposition home or self-care (01) ==
LOC: EMS 09:37
DX: F20.0 Paranoid schizophrenia (principal); F31.9 Bipolar disorder, unspecified; F15.90 Other stimulant use, unspecified, uncomplicated; F17.210 Nicotine dependence, cigarettes, uncomplicated; Z88.8 Allergy status to other drugs, medicaments and biological substances; Z79.899 Other long term (current) drug therapy
CPT/HCPCS: 36415; 80053; 80307; 85025; 99285; G0480

== ENCOUNTER 2020-07-21 15:45 | Inpatient (IN) | payer MEDICAID ==
[~2020-07-21] VITALS: Ht 152.4 cm; Wt 76.4 kg
[~2020-07-21 15:45] MED LIST changes: -ARIP882S IM; +DIVA-112 PO; -FERR-89 PO; -FLUO-191 PO; +HYD25 PO; -LEVE500T53 PO; -OXCA300T29 PO; +TRAZ-252 PO
[2020-07-21] MEDS ORDERED: BICT1TAB PO (15:55)
[2020-07-21] MEDS ORDERED: QUET25TA PO (15:55)
[2020-07-21] MEDS ORDERED: FERR-89 PO (15:56)
[2020-07-21] MEDS ORDERED: LEVE250T55 PO (15:56)
[2020-07-21] MEDS ORDERED: QUET200T PO (15:56)
[2020-07-21] MEDS ORDERED: LORazepam 2 MG/ML VIAL IVP ONE (16:00)
[2020-07-21] MEDS ORDERED: LevETIRAcetam 750 MG in DEXTROSE 5%-WATER 100 ML IV ONE (16:00)
[2020-07-21 17:19] LABS: AMPHET/METH SCREEN,URINE NEGATIVE (NEGATIVE); BARBITURATE SCREEN, URINE NEGATIVE (NEGATIVE); BENZODIAZEPINES SCREEN,URINE NEGATIVE (NEGATIVE); CANNABINOID SCREEN,URINE NEGATIVE (NEGATIVE); COCAINE SCREEN,URINE NEGATIVE (NEGATIVE); METHADONE SCREEN, URINE NEGATIVE (NEGATIVE); OPIATE SCREEN,URINE NEGATIVE (NEGATIVE)
[2020-07-21 17:20] LABS: PHENCYCLIDINE SCREEN,URINE NEGATIVE (NEGATIVE)
[2020-07-21 17:46] LABS: BASOPHILS % (AUTO) 0.5 % (0.0-2.0); EOSINOPHILS % (AUTO) 0.6 % (1.0-6.0); HEMATOCRIT 32.9 % (36-46); HEMOGLOBIN 10.8 g/dL (12.0-16.0); LYMPHOCYTES # (AUTO) 1.6 K/uL (1.0-4.8); LYMPHOCYTES % (AUTO) 28.2 % (22.0-44.0); MEAN CORPUSCULAR HGB CONC 32.8 G/dL (31.0-37.0); MEAN CORPUSCULAR VOLUME 88 fL (80-100); MONOCYTES # (AUTO) 0.4 K/uL (0.1-1.0); NEUTROPHILS # (AUTO) 3.6 K/uL (1.8-7.7); NEUTROPHILS % (AUTO) 63.7 % (40.0-70.0); PLATELET COUNT (AUTO) 290 K/uL (150-450); RED BLOOD CELL COUNT(AUTO) 3.72 MIL/uL (4.00-5.20); RED CELL DISTRIBUTION WIDTH 14.5 % (11.5-14.5)
[2020-07-21 18:00] LABS: ANION GAP 8 mmol/L (8-16); CALCIUM, TOTAL 8.8 mg/dL (8.8-10.5); CARBON DIOXIDE 27 mmol/L (22-29); CHLORIDE 106 mmol/L (98-107); CREATININE 0.53 mg/dL (0.60-1.30); GLOMERULAR FILTR. RATE CALC > 60 mL/min (>60); GLUCOSE,RANDOM 86 mg/dL (70-110); POTASSIUM 4.6 mmol/L (3.5-5.1); SODIUM SERUM 141 mmol/L (136-145); UREA NITROGEN, BLOOD 16 mg/dL (7-18)
[2020-07-21 18:08] LABS: ALANINE AMINOTRANSFERASE 20 U/L (12-78); ALBUMIN 2.9 g/dL (3.4-5.0); ALKALINE PHOSPHATASE 76 U/L (46-116); ASPARTATE AMINOTRANSFERASE 13 U/L (15-37); TOTAL PROTEIN, SERUM 6.3 g/dL (6.4-8.2); VALPROIC ACID 45 mcg/mL (50-100)
[2020-07-21 18:21] LABS: BILIRUBIN,TOTAL 0.1 mg/dL (0.1-1.0)
[2020-07-21 18:26] LABS: COVID AG,FIA SOURCE NASOPHARYNGEAL
[2020-07-21] MEDS ORDERED: ZOLPIDEM TARTRATE 10 MG TABLET PO PRN (19:15)
[2020-07-21 22:07] VITALS: BP 105/73
[2020-07-21] MEDS ORDERED: LORazepam 2 MG/ML VIAL IM PRN (22:30)
[2020-07-22 02:24] VITALS: BP 108/67
[2020-07-22] MEDS: HALOPERIDOL 5 MG TABLET PO PRN ×2 (02:24→19:50)
[2020-07-22] MEDS: FERROUS SULFATE 325 MG EC TABLET PO SCH (06:53)
[2020-07-22] MEDS ORDERED: PETROLATUM,WHITE 28 GM JELLY TP PRN (07:00)
[2020-07-22] MEDS ORDERED: ACETAMINOPHEN 325 MG TABLET PO PRN (07:00)
[2020-07-22] MEDS ORDERED: LOPERAMIDE HCL 2 MG CAPSULE PO PRN (07:00)
[2020-07-22] MEDS ORDERED: ALBUTEROL SULFATE HFA 90 MCG/PUFF 8 GM INHALER IH PRN (07:00)
[2020-07-22] MEDS ORDERED: DOCUSATE SODIUM 100 MG CAPSULE PO PRN (07:00)
[2020-07-22] MEDS ORDERED: CloNIDine HCL 0.1 MG TABLET PO PRN (07:00)
[2020-07-22] MEDS ORDERED: MAG HYDROX/AL HYDROX/SIMETH ES 30 ML SUSPENSION UDCUP PO PRN (07:00)
[2020-07-22] MEDS ORDERED: ONDANSETRON HCL 4 MG TABLET PO PRN (07:00)
[2020-07-22] MEDS ORDERED: MAGNESIUM HYDROXIDE SUSPENSION 30 ML UDCUP PO PRN (07:00)
[2020-07-22] MEDS ORDERED: NICOTINE 14 MG/24 HOUR PATCH TD PRN (07:00)
[2020-07-22] MEDS ORDERED: GuaiFENesin/D-METHORPHAN [SUGAR-FREE] 200-20MG/10 ML SYRUP UDCUP PO PRN (07:00)
[2020-07-22] MEDS ORDERED: FERROUS SULFATE 325 MG EC TABLET PO SCH (07:30)
[2020-07-22 08:00] VITALS: BP 106/70
[2020-07-22] MEDS: LevETIRAcetam 250 MG TABLET PO SCH (08:22)
[2020-07-22] MEDS: BICTEGRAV/EMTRICIT/TENOFOV ALA 50-200-25 MG TABLET PO SCH (08:22)
[2020-07-22] MEDS: DIVALPROEX SODIUM 500 MG DR TABLET PO SCH ×2 (08:22→16:16)
[2020-07-22] MEDS ORDERED: LevETIRAcetam 250 MG TABLET PO SCH (09:00)
[2020-07-22] MEDS ORDERED: BICTEGRAV/EMTRICIT/TENOFOV ALA 50-200-25 MG TABLET PO SCH (09:00)
[2020-07-22 11:09] LABS: CHOL/HDL RATIO 2.1 (3.9-5.7)
[2020-07-22 16:00] VITALS: BP 101/65
[2020-07-22] MEDS: QUEtiapine FUMARATE 25 MG TABLET PO SCH (16:17)
[2020-07-22] MEDS ORDERED: DIVALPROEX SODIUM 500 MG DR TABLET PO SCH (17:00)
[2020-07-22] MEDS: LORazepam 2 MG TABLET PO PRN (19:47)
[2020-07-22] MEDS: QUEtiapine FUMARATE 200 MG TABLET PO SCH (20:03)
[2020-07-23] MEDS: FERROUS SULFATE 325 MG EC TABLET PO SCH (07:00)
[2020-07-23 08:00] VITALS: BP 101/69
[2020-07-23] MEDS: DIVALPROEX SODIUM 500 MG DR TABLET PO SCH ×2 (09:16→16:21)
[2020-07-23] MEDS: LevETIRAcetam 250 MG TABLET PO SCH (09:17)
[2020-07-23] MEDS: QUEtiapine FUMARATE 25 MG TABLET PO SCH ×2 (09:17→16:21)
[2020-07-23] MEDS: BICTEGRAV/EMTRICIT/TENOFOV ALA 50-200-25 MG TABLET PO SCH (09:18)
[2020-07-23 16:00] VITALS: BP 144/71
[2020-07-23] MEDS: QUEtiapine FUMARATE 200 MG TABLET PO SCH (20:41)
[2020-07-24 02:35] VITALS: BP 106/59
[2020-07-24] MEDS: LORazepam 2 MG TABLET PO PRN ×2 (02:36→11:47)
[2020-07-24] MEDS: FERROUS SULFATE 325 MG EC TABLET PO SCH (06:32)
[2020-07-24 09:59] VITALS: BP 107/65
[2020-07-24] MEDS: BICTEGRAV/EMTRICIT/TENOFOV ALA 50-200-25 MG TABLET PO SCH (10:08)
[2020-07-24] MEDS: QUEtiapine FUMARATE 25 MG TABLET PO SCH ×2 (10:09→16:10)
[2020-07-24] MEDS: DIVALPROEX SODIUM 500 MG DR TABLET PO SCH ×2 (10:09→16:10)
[2020-07-24] MEDS: LevETIRAcetam 250 MG TABLET PO SCH (10:09)
[2020-07-24] MEDS: LevETIRAcetam 500 MG TABLET PO SCH (16:10)
[2020-07-24 16:19] VITALS: BP 102/64
[2020-07-24] MEDS: QUEtiapine FUMARATE 200 MG TABLET PO SCH (20:57)
[2020-07-25] MEDS: FERROUS SULFATE 325 MG EC TABLET PO SCH (06:34)
[2020-07-25] MEDS: QUEtiapine FUMARATE 25 MG TABLET PO SCH ×2 (09:06→18:11)
[2020-07-25] MEDS: BICTEGRAV/EMTRICIT/TENOFOV ALA 50-200-25 MG TABLET PO SCH (09:06)
[2020-07-25] MEDS: LevETIRAcetam 500 MG TABLET PO SCH ×2 (09:06→18:11)
[2020-07-25] MEDS: DIVALPROEX SODIUM 500 MG DR TABLET PO SCH ×2 (09:06→18:11)
[2020-07-25] MEDS: LORazepam 2 MG TABLET PO PRN (09:06)
[2020-07-25 09:57] VITALS: BP 102/53
[2020-07-25] MEDS: IBUPROFEN 400 MG TABLET PO PRN (10:32)
[2020-07-25] MEDS: QUEtiapine FUMARATE 200 MG TABLET PO SCH (20:01)
[2020-07-26 04:38] VITALS: BP 102/64
[2020-07-26] MEDS: LORazepam 2 MG TABLET PO PRN (04:49)
[2020-07-26] MEDS: FERROUS SULFATE 325 MG EC TABLET PO SCH (06:55)
[2020-07-26] MEDS: DIVALPROEX SODIUM 500 MG DR TABLET PO SCH ×2 (08:40→16:34)
[2020-07-26] MEDS: QUEtiapine FUMARATE 25 MG TABLET PO SCH ×2 (08:41→16:34)
[2020-07-26] MEDS: BICTEGRAV/EMTRICIT/TENOFOV ALA 50-200-25 MG TABLET PO SCH (08:41)
[2020-07-26] MEDS: LevETIRAcetam 500 MG TABLET PO SCH ×2 (08:41→16:34)
[2020-07-26 08:43] VITALS: BP 111/58
[2020-07-26] MEDS: IBUPROFEN 400 MG TABLET PO PRN (08:46)
[2020-07-26 15:30] LABS: GLUCOMETER DEV NAME(LOC) 3E.I 2; GLUCOSE,POINT OF CARE 96 MG/DL (70-110)
[2020-07-26 16:00] VITALS: BP 112/77
[2020-07-26] MEDS: QUEtiapine FUMARATE 200 MG TABLET PO SCH (20:19)
[2020-07-26] MEDS ORDERED: PHENYTOIN 50 MG CHEWABLE TABLET PO SCH (21:00)
[2020-07-26] MEDS ORDERED: PHENYTOIN SODIUM 100 MG ER CAPSULE PO SCH (21:00)
[2020-07-27] MEDS: FERROUS SULFATE 325 MG EC TABLET PO SCH (06:52)
[2020-07-27] MEDS: QUEtiapine FUMARATE 25 MG TABLET PO SCH ×2 (08:47→18:00)
[2020-07-27] MEDS: BICTEGRAV/EMTRICIT/TENOFOV ALA 50-200-25 MG TABLET PO SCH (08:47)
[2020-07-27] MEDS: LORazepam 2 MG TABLET PO PRN ×2 (08:47→12:50)
[2020-07-27] MEDS: LevETIRAcetam 500 MG TABLET PO SCH ×2 (08:47→18:00)
[2020-07-27] MEDS: DIVALPROEX SODIUM 500 MG DR TABLET PO SCH ×2 (08:47→18:00)
[2020-07-27 12:37] VITALS: BP 114/93
[2020-07-27] MEDS: IBUPROFEN 400 MG TABLET PO PRN (12:40)
[2020-07-27] MEDS ORDERED: LORazepam 2 MG/ML VIAL IM ONE (14:30)
[2020-07-27] MEDS ORDERED: HALOPERIDOL LACTATE 5 MG/ML VIAL IM ONE (14:30)
[2020-07-27] MEDS ORDERED: DiphenhydrAMINE HCL 50 MG/ML VIAL IM ONE (14:30)
[2020-07-27 16:02] LABS: COVID AG,FIA SOURCE NASOPHARYNGEAL
[2020-07-27 16:21] VITALS: BP 105/82
[2020-07-27] MEDS: QUEtiapine FUMARATE 200 MG TABLET PO SCH (21:02)
[2020-07-28 02:51] VITALS: BP 110/65
[2020-07-28] MEDS: FERROUS SULFATE 325 MG EC TABLET PO SCH (06:32)
[2020-07-28] MEDS: DIVALPROEX SODIUM 500 MG DR TABLET PO SCH (08:42)
[2020-07-28] MEDS: BICTEGRAV/EMTRICIT/TENOFOV ALA 50-200-25 MG TABLET PO SCH (08:42)
[2020-07-28] MEDS: LevETIRAcetam 500 MG TABLET PO SCH ×2 (08:42→16:00)
[2020-07-28] MEDS: QUEtiapine FUMARATE 25 MG TABLET PO SCH ×2 (08:42→16:00)
[2020-07-28 09:42] VITALS: BP 109/62
[2020-07-28] MEDS: LORazepam 2 MG TABLET PO PRN (11:20)
[2020-07-28 11:29] LABS: GLUCOMETER DEV NAME(LOC) 3E.I 2; GLUCOSE,POINT OF CARE 123 MG/DL (70-110)
[2020-07-28 11:55] VITALS: BP 98/63
[2020-07-28] MEDS: IBUPROFEN 400 MG TABLET PO PRN (11:55)
[2020-07-28] MEDS: DIVALPROEX SODIUM 250 MG DR TABLET PO SCH (15:59)
[2020-07-28 17:32] VITALS: BP 104/63
[2020-07-28] MEDS: QUEtiapine FUMARATE 200 MG TABLET PO SCH (20:42)
[2020-07-29] MEDS: FERROUS SULFATE 325 MG EC TABLET PO SCH (06:42)
[2020-07-29 08:05] VITALS: BP 121/70
[2020-07-29] MEDS: LORazepam 2 MG TABLET PO PRN (08:08)
[2020-07-29] MEDS: BICTEGRAV/EMTRICIT/TENOFOV ALA 50-200-25 MG TABLET PO SCH (08:08)
[2020-07-29] MEDS: LevETIRAcetam 500 MG TABLET PO SCH ×2 (08:08→16:49)
[2020-07-29] MEDS: QUEtiapine FUMARATE 25 MG TABLET PO SCH ×2 (08:09→16:49)
[2020-07-29] MEDS: DIVALPROEX SODIUM 250 MG DR TABLET PO SCH ×2 (08:09→16:49)
[2020-07-29 19:00] VITALS: BP 101/56
[2020-07-29] MEDS: QUEtiapine FUMARATE 200 MG TABLET PO SCH (20:26)
[2020-07-29] MEDS: HALOPERIDOL 5 MG TABLET PO PRN (20:50)
[2020-07-30 05:15] VITALS: BP 111/65
[2020-07-30] MEDS: FERROUS SULFATE 325 MG EC TABLET PO SCH (06:34)
[2020-07-30 08:00] VITALS: BP 107/65
[2020-07-30] MEDS: BICTEGRAV/EMTRICIT/TENOFOV ALA 50-200-25 MG TABLET PO SCH (08:58)
[2020-07-30] MEDS: DIVALPROEX SODIUM 250 MG DR TABLET PO SCH ×2 (08:59→16:35)
[2020-07-30] MEDS: QUEtiapine FUMARATE 25 MG TABLET PO SCH ×2 (09:00→16:35)
[2020-07-30] MEDS: LevETIRAcetam 500 MG TABLET PO SCH ×2 (09:00→16:35)
[2020-07-30] MEDS: LORazepam 2 MG TABLET PO PRN (09:01)
[2020-07-30] MEDS: HALOPERIDOL 5 MG TABLET PO PRN (09:01)
[2020-07-30 16:00] VITALS: BP 96/60
[2020-07-30] MEDS ORDERED: DIVALPROEX SODIUM 125 MG DR TABLET PO ONE (19:00)
[2020-07-30] MEDS: QUEtiapine FUMARATE 200 MG TABLET PO SCH (20:22)
[2020-07-31 00:53] VITALS: BP 99/59
[2020-07-31] MEDS: FERROUS SULFATE 325 MG EC TABLET PO SCH (06:35)
[2020-07-31 08:00] VITALS: BP 100/61
[2020-07-31] MEDS: BICTEGRAV/EMTRICIT/TENOFOV ALA 50-200-25 MG TABLET PO SCH (08:11)
[2020-07-31] MEDS: QUEtiapine FUMARATE 25 MG TABLET PO SCH ×2 (08:11→16:30)
[2020-07-31] MEDS: LevETIRAcetam 500 MG TABLET PO SCH ×2 (08:11→16:30)
[2020-07-31] MEDS: DIVALPROEX SODIUM 250 MG DR TABLET PO SCH ×2 (08:11→16:30)
[2020-07-31 08:26] LABS: GLUCOMETER DEV NAME(LOC) 3E.I 2; GLUCOSE,POINT OF CARE 154 MG/DL (70-110)
[2020-07-31] MEDS ORDERED: PHENYTOIN 100 MG/4 ML SUSPENSION UDCUP PO ONE (08:30)
[2020-07-31] MEDS: PHENYTOIN 100 MG/4 ML SUSPENSION UDCUP PO SCH ×3 (09:07→16:31)
[2020-07-31 16:20] VITALS: BP 119/77
[2020-07-31] MEDS ORDERED: DEXTROSE 50%-WATER 25 GM/50 ML SYRINGE IVP PRN (18:45)
[2020-07-31 18:59] LABS: GLUCOMETER DEV NAME(LOC) 3E.I 2; GLUCOSE,POINT OF CARE 95 MG/DL (70-110)
[2020-07-31 18:59] LABS: GLUCOMETER DEV NAME(LOC) 3E.I 2; GLUCOSE,POINT OF CARE 44 MG/DL (70-110)
== END 2020-07-31 19:15 | disposition home or self-care (01) | DRG 750 ==
LOC: EMS 15:48 → 3EI 19:06
PROVIDERS: ADMIT Psychiatry & Neurology Child & Adolescent Psychiatry; ATTEND Psychiatry & Neurology Child & Adolescent Psychiatry
DX: F25.1 Schizoaffective disorder, depressive type (principal); R45.851 Suicidal ideations; F12.90 Cannabis use, unspecified, uncomplicated; F41.9 Anxiety disorder, unspecified; Z59.0 Homelessness; D64.9 Anemia, unspecified; Z21 Asymptomatic human immunodeficiency virus [HIV] infection status; G40.909 Epilepsy, unspecified, not intractable, without status epilepticus; Z88.8 Allergy status to other drugs, medicaments and biological substances; Z86.14 Personal history of Methicillin resistant Staphylococcus aureus infection; F31.9 Bipolar disorder, unspecified; F17.210 Nicotine dependence, cigarettes, uncomplicated; R45.850 Homicidal ideations; Z20.822 Contact with and (suspected) exposure to COVID-19
CPT/HCPCS: 87081; 87426; 95816; 99285; A9575; G0480; G0482; J0712; J1200; J1630; J2060; J7060

== ENCOUNTER 2024-03-05 13:05 | Inpatient (IN) | payer MEDICAID ==
[~2024-03-05] VITALS: Ht 152.4 cm; Wt 120.9 kg
[~2024-03-05 13:05] MED LIST changes: +BICT1TAB PO; -HYD25 PO; +LEVE250T81 PO; +OXCA300T70 PO; +QUET200T PO; +QUET25TA PO; -TRAZ-252 PO
[2024-03-05] MEDS ORDERED: PROMETHAZINE HCL 25 MG TABLET PO PRN (14:00)
[2024-03-05] MEDS ORDERED: GuaiFENesin/D-METHORPHAN [SUGAR-FREE] 200-20MG/10 ML SYRUP UDCUP PO PRN (14:00)
[2024-03-05] MEDS ORDERED: LOPERAMIDE HCL 2 MG CAPSULE PO PRN (14:00)
[2024-03-05] MEDS ORDERED: TUBERCULIN, PURIFIED PROTEIN DERIVATIVE 5 TU/0.1 ML SYRINGE ID ONE (14:00)
[2024-03-05] MEDS ORDERED: QUEtiapine FUMARATE 100 MG TABLET PO PRN (14:00)
[2024-03-05] MEDS ORDERED: ZOLPIDEM TARTRATE 10 MG TABLET PO PRN (14:00)
[2024-03-05] MEDS ORDERED: HydrOXYzine PAMOATE 50 MG CAPSULE PO PRN (14:00)
[2024-03-05] MEDS ORDERED: MAG HYDROX/ALUMINUM HYD/SIMETH ES 30 ML SUSPENSION UDCUP PO PRN (14:00)
[2024-03-05] MEDS ORDERED: LEVE-71 PO (14:16)
[2024-03-05] MEDS ORDERED: DIVA-111 PO ×2 (14:16→14:36)
[2024-03-05 14:36] LABS: GLUCOMETER DEV NAME(LOC) POC.BV; POC SARS-COV2 AG, FIA NEGATIVE (NEGATIVE)
[2024-03-05] MEDS ORDERED: LAMO25TA36 PO (14:36)
[2024-03-05] MEDS ORDERED: DOLU1TAB2 PO (14:36)
[2024-03-05] MEDS ORDERED: CARI1.5C PO (14:36)
[2024-03-05] MEDS ORDERED: TIRZ5PEN3 SQ (14:43)
[2024-03-05] MEDS ORDERED: LevETIRAcetam 500 MG TABLET PO SCH (17:00)
[2024-03-05] MEDS: ACETAMINOPHEN 325 MG TABLET PO PRN (17:28)
[2024-03-05] MEDS: OXcarbazepine 300 MG TABLET PO SCH (18:13)
[2024-03-05] MEDS: LevETIRAcetam 500 MG TABLET PO SCH (18:13)
[2024-03-05] MEDS: THIAMINE 100 MG TABLET PO SCH (18:14)
[2024-03-05] MEDS: DIVALPROEX SODIUM 250 MG ER TABLET PO SCH (18:16)
[2024-03-05 20:07] VITALS: BP 105/85; PULSE 85; RESP 18; TEMP 97.5; O2SAT 96
[2024-03-05] MEDS: PRAZOSIN HCL 1 MG CAPSULE PO SCH (20:52)
[2024-03-05] MEDS: LamoTRIgine 25 MG TABLET PO SCH (20:52)
[2024-03-05] MEDS: QUEtiapine FUMARATE 200 MG TABLET PO SCH (20:53)
[2024-03-06 08:28] VITALS: BP 138/70; PULSE 87; RESP 17; TEMP 98; O2SAT 100
[2024-03-06 08:53] LABS: BASOPHILS % (AUTO) 0.3 % (0.0-2.0); HEMATOCRIT 43.6 % (36-46); HEMOGLOBIN 13.9 g/dL (12.0-16.0); LYMPHOCYTES # (AUTO) 2.6 K/uL (1.0-4.8); LYMPHOCYTES % (AUTO) 38.7 % (22.0-44.0); MEAN CORPUSCULAR HEMOGLOBIN 30.5 pg (26.0-34.0); MEAN CORPUSCULAR VOLUME 95 fL (80-100); MONOCYTES # (AUTO) 0.5 K/uL (0.1-1.0); MONOCYTES % (AUTO) 8.2 % (2.0-9.0); NEUTROPHILS # (AUTO) 3.4 K/uL (1.8-7.7); NEUTROPHILS % (AUTO) 51.8 % (40.0-70.0); PLATELET COUNT (AUTO) 283 K/uL (150-450); RED BLOOD CELL COUNT(AUTO) 4.57 MIL/uL (4.00-5.20); WHITE BLOOD COUNT (AUTO) 6.6 K/uL (4.5-11.0)
[2024-03-06 09:04] LABS: ALCOHOL, URINE DRUG SCREEN NEGATIVE (NEGATIVE); AMPHET/METH SCREEN,URINE NEGATIVE (NEGATIVE); BARBITURATE SCREEN, URINE NEGATIVE (NEGATIVE); BENZODIAZEPINES SCREEN,URINE NEGATIVE (NEGATIVE); CANNABINOID SCREEN,URINE NEGATIVE (NEGATIVE); COCAINE SCREEN,URINE NEGATIVE (NEGATIVE); METHADONE SCREEN, URINE NEGATIVE (NEGATIVE); OPIATE SCREEN,URINE NEGATIVE (NEGATIVE); PHENCYCLIDINE SCREEN,URINE NEGATIVE (NEGATIVE)
[2024-03-06 09:14] LABS: HEMOGLOBIN A1C 5.5 % (3.8-5.6)
[2024-03-06 09:22] LABS: HCG,QUAL URINE NEGATIVE (NEGATIVE)
[2024-03-06 09:23] LABS: ALANINE AMINOTRANSFERASE 54 U/L (12-78); ALKALINE PHOSPHATASE 72 U/L (46-116); ANION GAP 10 mmol/L (8-16); ASPARTATE AMINOTRANSFERASE 42 U/L (15-37); BILIRUBIN,TOTAL 0.3 mg/dL (0.1-1.0); CALCIUM, TOTAL 8.6 mg/dL (8.8-10.5); CARBON DIOXIDE 27 mmol/L (22-29); CHLORIDE 101 mmol/L (98-107); CHOLESTEROL 141 mg/dL (131-200); CREATININE 0.74 mg/dL (0.60-1.30); FREE T4 (FREE THYROXINE) 0.99 ng/dL (0.76-1.46); GLOMERULAR FILTR. RATE CALC > 60 mL/min (>60); GLUCOSE,RANDOM 81 mg/dL (70-110); HDL CHOLESTEROL 47 mg/dL (40-60); LDL CHOL (CALC.) 60 mg/dL (0-130); POTASSIUM 4.2 mmol/L (3.5-5.1); SODIUM SERUM 138 mmol/L (136-145); THYROID STIMULATING HORMONE 5.21 uIU/mL (0.36-3.74); TOTAL PROTEIN, SERUM 6.3 g/dL (6.4-8.2); TRIGLYCERIDES 169 mg/dL (15-150); UREA NITROGEN, BLOOD 10 mg/dL (7-18); VALPROIC ACID 48 mcg/mL (50-100)
[2024-03-06] MEDS: FOLIC ACID 1 MG TABLET PO SCH (09:37)
[2024-03-06] MEDS: MULTIVITAMINS WITH MINERALS, THERAPEUTIC TABLET PO SCH (09:37)
[2024-03-06] MEDS: FLUoxetine HCL 10 MG CAPSULE PO SCH (09:38)
[2024-03-06] MEDS: DOLUTEGRAVIR SODIUM 50 MG TABLET PO SCH (09:38)
[2024-03-06] MEDS: MAGNESIUM HYDROXIDE SUSPENSION 30 ML UDCUP PO PRN (09:43)
[2024-03-06 20:47] VITALS: BP 112/59; PULSE 85; RESP 18; TEMP 98.5; O2SAT 98
[2024-03-07 04:06] LABS: HEPATITIS A ANTIBODY IGM Negative (Negative); HEPATITIS B CORE IGM Negative (Negative); HEPATITIS C AB (EIA) Non Reactive (Non Reactive)
[2024-03-07] MEDS: FLUoxetine HCL 20 MG CAPSULE PO SCH (08:08)
[2024-03-07 08:25] VITALS: BP 110/66; PULSE 91; RESP 17; TEMP 97.2; O2SAT 95
[2024-03-07 12:06] LABS: GLUCOMETER DEV NAME(LOC) BV2S.; GLUCOSE,POINT OF CARE 122 MG/DL (70-110)
[2024-03-07] MEDS: LORazepam 2 MG TABLET PO PRN (12:41)
[2024-03-07] MEDS: INFLUENZA VIRUS VACCINE TVS (6MO+) 2024-25/PF 45 MCG/0.5 ML SYRINGE IM. ONE (14:09)
[2024-03-07] MEDS: ETHYL ALCOHOL 62% ANTISEPTIC NASAL SANITIZER 0.6 ML AMPUL NASAL SCH (20:25)
[2024-03-07] MEDS: CHLORHEXIDINE GLUCONATE 2% TOWELETTE [2'S/6'S] TP SCH (20:26)
[2024-03-07] MEDS: QUEtiapine FUMARATE 200 MG TABLET PO SCH (21:00)
[2024-03-07 21:17] VITALS: BP 121/72; PULSE 97; RESP 18; TEMP 98.2; O2SAT 97
[2024-03-08 08:17] VITALS: BP 141/66; PULSE 91; RESP 18; TEMP 97.9; O2SAT 98
[2024-03-08 09:56] VITALS: RESP 18; O2SAT 98
[2024-03-08 10:56] VITALS: RESP 18; O2SAT 98
[2024-03-08 15:54] VITALS: RESP 18; O2SAT 98
[2024-03-08 16:54] VITALS: RESP 17; O2SAT 98
[2024-03-08] MEDS: QUEtiapine FUMARATE 300 MG TABLET PO SCH (20:43)
[2024-03-08 21:32] VITALS: BP 111/75; PULSE 94; RESP 18; TEMP 96.8; O2SAT 96
[2024-03-09 08:06] LABS: HIV 1-2 SCREEN 4TH GEN W/RFLX Preliminary Reactive (Non Reactive); HIV INTERPRETATION HIV-1 Positive; HIV-1 ANTIBODY(MULTISPOT) Reactive (Non Reactive); HIV-2 ANTIBODY(MULTISPOT) Non Reactive (Non Reactive)
[2024-03-09 08:48] VITALS: BP 111/65; PULSE 87; RESP 18; TEMP 96.8; O2SAT 97
[2024-03-09 12:08] VITALS: BP 132/70; PULSE 90; RESP 19; TEMP 97.9; O2SAT 100
[2024-03-09 20:00] VITALS: BP 113/68; PULSE 90; RESP 18; TEMP 97.8; O2SAT 96
[2024-03-09] MEDS: PRAZOSIN HCL 1 MG CAPSULE PO SCH (20:33)
[2024-03-09] MEDS: QUEtiapine FUMARATE 200 MG TABLET PO SCH (20:33)
[2024-03-10 08:31] VITALS: BP 106/66; PULSE 81; RESP 17; TEMP 98; O2SAT 98
[2024-03-10 22:11] VITALS: BP 108/60; PULSE 79; RESP 16; TEMP 98; O2SAT 99
[2024-03-11 08:38] VITALS: BP 146/75; PULSE 64; RESP 18; TEMP 98; O2SAT 95
[2024-03-11 20:28] VITALS: BP 120/82; PULSE 78; RESP 18; TEMP 96.7; O2SAT 96
[2024-03-12 07:10] VITALS: BP 118/71; PULSE 99; RESP 18; TEMP 98.2; O2SAT 97
[2024-03-12 07:28] VITALS: BP 121/74; PULSE 102; RESP 16; O2SAT 96
[2024-03-12 07:55] LABS: GLUCOMETER DEV NAME(LOC) BV2S.; GLUCOSE,POINT OF CARE 162 MG/DL (70-110)
[2024-03-12 20:22] VITALS: BP 101/63; PULSE 85; RESP 18; TEMP 97.9; O2SAT 98
[2024-03-12] MEDS: HALOPERIDOL 10 MG TABLET PO SCH (21:49)
[2024-03-13 08:28] VITALS: BP 110/72; PULSE 94; RESP 18; TEMP 97; O2SAT 96
[2024-03-13] MEDS: DIVALPROEX SODIUM 500 MG ER TABLET PO SCH (09:47)
[2024-03-13] MEDS: LevETIRAcetam 500 MG TABLET PO SCH (09:47)
[2024-03-13] MEDS ORDERED: HALO10TA21 PO (18:41)
[2024-03-13] MEDS ORDERED: PRAZ1 PO (18:41)
[2024-03-13] MEDS ORDERED: LEVE-71 PO (18:41)
[2024-03-13] MEDS ORDERED: QUET200T30 PO (18:41)
[2024-03-13] MEDS ORDERED: OXCA300T28 PO (18:41)
[2024-03-13] MEDS ORDERED: DIVA-153 PO (18:41)
[2024-03-13] MEDS ORDERED: FLUO-418 PO (18:41)
[2024-03-13 21:35] VITALS: BP 124/69; PULSE 93; RESP 18; TEMP 97.2; O2SAT 96
[2024-03-14 08:21] VITALS: BP 118/60; PULSE 88; RESP 17; TEMP 97; O2SAT 97
== END 2024-03-14 11:45 | disposition home or self-care (01) | DRG 750 ==
LOC: B2S 14:21
PROVIDERS: ADMIT Psychiatry & Neurology Psychiatry; ATTEND Psychiatry & Neurology Psychiatry
PROC: GZHZZZZ Group Psychotherapy (ICD-10-PCS; principal; 2024-03-05)
PROC: GZ56ZZZ Individual Psychotherapy, Supportive (ICD-10-PCS; 2024-03-05)
DX: F25.0 Schizoaffective disorder, bipolar type (principal); G93.41 Metabolic encephalopathy; G40.409 Other generalized epilepsy and epileptic syndromes, not intractable, without status epilepticus; Z68.43 Body mass index [BMI] 50.0-59.9, adult; D64.9 Anemia, unspecified; Z20.822 Contact with and (suspected) exposure to COVID-19; J44.9 Chronic obstructive pulmonary disease, unspecified; E66.9 Obesity, unspecified; F17.200 Nicotine dependence, unspecified, uncomplicated; Z88.8 Allergy status to other drugs, medicaments and biological substances; Z79.899 Other long term (current) drug therapy; Z81.8 Family history of other mental and behavioral disorders
CPT/HCPCS: 80053; 80061; 80074; 80164; 80307; 82962; 83036; 84439; 84443; 84703; 85025; 86592; 87081; 87389; 90686; G0482

== ENCOUNTER 2024-03-12 08:15 | Emergency (ER) | payer MEDICAID ==
[~2024-03-12] VITALS: Ht 154.9 cm; Wt 121.5 kg
[~2024-03-12 08:15] MED LIST changes: -BICT1TAB PO; +CARI1.5C PO; +DIVA-111 PO; -DIVA-112 PO; +DOLU1TAB2 PO; +LAMO25TA36 PO; +LEVE-71 PO; -LEVE250T81 PO; +TIRZ5PEN3 SQ
[2024-03-12 08:47] LABS: BASOPHILS % (AUTO) 0.4 % (0.0-2.0); HEMATOCRIT 42.2 % (36-46); HEMOGLOBIN 13.8 g/dL (12.0-16.0); LYMPHOCYTES # (AUTO) 2.2 K/uL (1.0-4.8); LYMPHOCYTES % (AUTO) 37.1 % (22.0-44.0); MEAN CORPUSCULAR HEMOGLOBIN 31.2 pg (26.0-34.0); MEAN CORPUSCULAR HGB CONC 32.7 G/dL (31.0-37.0); MEAN CORPUSCULAR VOLUME 96 fL (80-100); MONOCYTES # (AUTO) 0.4 K/uL (0.1-1.0); NEUTROPHILS # (AUTO) 3.2 K/uL (1.8-7.7); NEUTROPHILS % (AUTO) 55.5 % (40.0-70.0); PLATELET COUNT (AUTO) 226 K/uL (150-450); RED BLOOD CELL COUNT(AUTO) 4.42 MIL/uL (4.00-5.20); RED CELL DISTRIBUTION WIDTH 15.1 % (11.5-14.5); WHITE BLOOD COUNT (AUTO) 5.8 K/uL (4.5-11.0)
[2024-03-12 09:01] LABS: ANION GAP 3 mmol/L (8-16); CALCIUM, TOTAL 8.8 mg/dL (8.8-10.5); CARBON DIOXIDE 30 mmol/L (22-29); CHLORIDE 103 mmol/L (98-107); CREATININE 0.81 mg/dL (0.60-1.30); GLOMERULAR FILTR. RATE CALC > 60 mL/min (>60); GLUCOSE,RANDOM 134 mg/dL (70-110); POTASSIUM 3.8 mmol/L (3.5-5.1); SODIUM SERUM 136 mmol/L (136-145); UREA NITROGEN, BLOOD 12 mg/dL (7-18)
[2024-03-12 09:02] LABS: ALCOHOL, BLOOD (SERUM) < 3 mg/dL (0-10)
[2024-03-12 09:11] LABS: ALANINE AMINOTRANSFERASE 40 U/L (12-78); ALKALINE PHOSPHATASE 74 U/L (46-116); ASPARTATE AMINOTRANSFERASE 27 U/L (15-37); BILIRUBIN,TOTAL 0.2 mg/dL (0.1-1.0); HCG,QUANTITATIVE < 1 mIU/mL (0-6); TOTAL PROTEIN, SERUM 6.4 g/dL (6.4-8.2); VALPROIC ACID 68 mcg/mL (50-100)
[2024-03-12] MEDS: LevETIRAcetam 1,000 MG in DEXTROSE 5%-WATER 100 ML IV ONE (09:41)
[2024-03-12 11:09] LABS: ALCOHOL, URINE DRUG SCREEN NEGATIVE (NEGATIVE); AMPHET/METH SCREEN,URINE NEGATIVE (NEGATIVE); BARBITURATE SCREEN, URINE NEGATIVE (NEGATIVE); BENZODIAZEPINES SCREEN,URINE NEGATIVE (NEGATIVE); CANNABINOID SCREEN,URINE NEGATIVE (NEGATIVE); COCAINE SCREEN,URINE NEGATIVE (NEGATIVE); METHADONE SCREEN, URINE NEGATIVE (NEGATIVE); OPIATE SCREEN,URINE NEGATIVE (NEGATIVE); PHENCYCLIDINE SCREEN,URINE NEGATIVE (NEGATIVE)
[2024-03-12 12:13] VITALS: BP 117/70; PULSE 89; RESP 18; TEMP 98.1; O2SAT 96
[2024-03-13] MEDS ORDERED: OXCA300T28 PO (18:41)
[2024-03-13] MEDS ORDERED: FLUO-418 PO (18:41)
[2024-03-13] MEDS ORDERED: QUET200T30 PO (18:41)
[2024-03-13] MEDS ORDERED: HALO10TA21 PO (18:41)
[2024-03-13] MEDS ORDERED: DIVA-153 PO (18:41)
[2024-03-13] MEDS ORDERED: PRAZ1 PO (18:41)
[2024-03-13] MEDS ORDERED: LEVE-71 PO (18:41)
== END 2024-03-12 13:47 ==
LOC: EMS 08:15
DX: F25.1 Schizoaffective disorder, depressive type (principal); G40.909 Epilepsy, unspecified, not intractable, without status epilepticus; F41.9 Anxiety disorder, unspecified; F17.210 Nicotine dependence, cigarettes, uncomplicated; F15.90 Other stimulant use, unspecified, uncomplicated; Z98.890 Other specified postprocedural states; Z88.8 Allergy status to other drugs, medicaments and biological substances
CPT/HCPCS: 99284; 96365; 80053; 80164; 84702; 85025; 36415; 80307; J0712; G0480; J7060

== ENCOUNTER 2024-04-27 17:24 | Emergency (ER) | payer MEDICAID ==
[~2024-04-27] VITALS: Ht 162.6 cm; Wt 125.0 kg
[~2024-04-27 17:24] MED LIST changes: -CARI1.5C PO; -DIVA-111 PO; -DOLU1TAB2 PO; +FLUO-418 PO; +HALO5TAB23 PO; +OXCA300T28 PO; -OXCA300T70 PO; -QUET200T PO; +QUET200T30 PO; -QUET25TA PO; -TIRZ5PEN3 SQ
[2024-04-27 17:27] VITALS: TEMP 98.8
[2024-04-27] MEDS ORDERED: IBUP-1492 PO (19:50)
[2024-04-27] MEDS ORDERED: CEPH-558 PO (19:50)
[2024-04-27] MEDS ORDERED: BACTDSB PO (19:50)
[2024-04-27] MEDS: CefTRIAXone SODIUM 1 GM/VIAL IM ONE (19:54)
[2024-04-27] MEDS: LIDOCAINE/PF 1% 2 ML VIAL IM ONE (19:54)
[2024-04-27 20:10] VITALS: BP 127/54; PULSE 88; RESP 18; O2SAT 99
== END 2024-04-27 20:11 | disposition home or self-care (01) ==
LOC: EMS 17:24
DX: L03.317 Cellulitis of buttock (principal); F20.9 Schizophrenia, unspecified; F31.9 Bipolar disorder, unspecified; F17.210 Nicotine dependence, cigarettes, uncomplicated; F15.90 Other stimulant use, unspecified, uncomplicated; Z98.890 Other specified postprocedural states; Z88.8 Allergy status to other drugs, medicaments and biological substances
CPT/HCPCS: 99283; 96372; J0696; J3490

== ENCOUNTER 2024-07-05 13:46 | Inpatient (IN) | payer MEDICAID ==
[~2024-07-05] VITALS: Ht 154.9 cm; Wt 126.6 kg
[~2024-07-05 13:46] MED LIST changes: +BACTDSB PO; +CEPH-558 PO; -FLUO-418 PO; +IBUP-1492 PO; -LEVE-71 PO; -OXCA300T28 PO
[2024-07-05] MEDS ORDERED: MAGNESIUM HYDROXIDE SUSPENSION 30 ML UDCUP PO PRN (15:30)
[2024-07-05] MEDS ORDERED: ACETAMINOPHEN 325 MG TABLET PO PRN (15:30)
[2024-07-05] MEDS ORDERED: LOPERAMIDE HCL 2 MG CAPSULE PO PRN (15:30)
[2024-07-05] MEDS ORDERED: MAG HYDROX/ALUMINUM HYD/SIMETH ES 30 ML SUSPENSION UDCUP PO PRN (15:30)
[2024-07-05 21:53] VITALS: BP 123/79; PULSE 66; RESP 18; TEMP 97.6; O2SAT 98
[2024-07-05] MEDS: LORazepam 1 MG TABLET PO PRN (21:54)
[2024-07-05] MEDS: HALOPERIDOL 5 MG TABLET PO PRN (21:54)
[2024-07-06] MEDS ORDERED: NICOTINE 14 MG/24 HOUR PATCH TD PRN (06:45)
[2024-07-06] MEDS ORDERED: PETROLATUM,WHITE 28 GM JELLY TP PRN (06:45)
[2024-07-06] MEDS ORDERED: GuaiFENesin/D-METHORPHAN [SUGAR-FREE] 200-20MG/10 ML SYRUP UDCUP PO PRN (06:45)
[2024-07-06] MEDS ORDERED: CloNIDine HCL 0.1 MG TABLET PO PRN (06:45)
[2024-07-06] MEDS ORDERED: MAGNESIUM HYDROXIDE SUSPENSION 30 ML UDCUP PO PRN (06:45)
[2024-07-06] MEDS ORDERED: MAG HYDROX/ALUMINUM HYD/SIMETH ES 30 ML SUSPENSION UDCUP PO PRN (06:45)
[2024-07-06] MEDS ORDERED: DOCUSATE SODIUM 100 MG CAPSULE PO PRN (06:45)
[2024-07-06] MEDS ORDERED: ONDANSETRON 4 MG TABLET PO PRN (06:45)
[2024-07-06] MEDS ORDERED: LOPERAMIDE HCL 2 MG CAPSULE PO PRN (06:45)
[2024-07-06] MEDS ORDERED: ACETAMINOPHEN 325 MG TABLET PO PRN (06:45)
[2024-07-06] MEDS ORDERED: ALBUTEROL SULFATE HFA 90 MCG/PUFF 8 GM INHALER IH PRN (06:45)
[2024-07-06 08:32] VITALS: BP 116/67; PULSE 87; RESP 18; TEMP 97.8; O2SAT 95
[2024-07-06 08:35] LABS: BASOPHILS % (AUTO) 0.4 % (0.0-2.0); EOSINOPHILS % (AUTO) 0 % (1.0-6.0); HEMATOCRIT 40.6 % (36-46); HEMOGLOBIN 13.2 g/dL (12.0-16.0); LYMPHOCYTES # (AUTO) 3.3 K/uL (1.0-4.8); MEAN CORPUSCULAR HEMOGLOBIN 31.3 pg (26.0-34.0); MEAN CORPUSCULAR HGB CONC 32.6 G/dL (31.0-37.0); MEAN CORPUSCULAR VOLUME 96 fL (80-100); MONOCYTES # (AUTO) 0.6 K/uL (0.1-1.0); MONOCYTES % (AUTO) 7.2 % (2.0-9.0); NEUTROPHILS # (AUTO) 3.9 K/uL (1.8-7.7); NEUTROPHILS % (AUTO) 50.4 % (40.0-70.0); PLATELET COUNT (AUTO) 297 K/uL (150-450); RED BLOOD CELL COUNT(AUTO) 4.22 MIL/uL (4.00-5.20); RED CELL DISTRIBUTION WIDTH 14.7 % (11.5-14.5); WHITE BLOOD COUNT (AUTO) 7.8 K/uL (4.5-11.0)
[2024-07-06] MEDS ORDERED: *NON-FORMULARY MED [ENTER DRUG, DOSE, FREQ IN COMMENTS] CLINICAL ONE (08:45)
[2024-07-06 08:50] LABS: ALANINE AMINOTRANSFERASE 25 U/L (12-78); ALBUMIN 2.8 g/dL (3.4-5.0); ALKALINE PHOSPHATASE 68 U/L (46-116); ANION GAP 7 mmol/L (8-16); ASPARTATE AMINOTRANSFERASE 18 U/L (15-37); BILIRUBIN,TOTAL 0.3 mg/dL (0.1-1.0); CALCIUM, TOTAL 8.3 mg/dL (8.8-10.5); CARBON DIOXIDE 28 mmol/L (22-29); CHLORIDE 105 mmol/L (98-107); CHOL/HDL RATIO 2.9 (3.9-5.7); CHOLESTEROL 143 mg/dL (131-200); CREATININE 0.59 mg/dL (0.60-1.30); FREE T4 (FREE THYROXINE) 0.72 ng/dL (0.76-1.46); GLOMERULAR FILTR. RATE CALC > 60 mL/min (>60); GLUCOSE,RANDOM 89 mg/dL (70-110); HDL CHOLESTEROL 50 mg/dL (40-60); LDL CHOL (CALC.) 57 mg/dL (0-130); POTASSIUM 4.2 mmol/L (3.5-5.1); SODIUM SERUM 140 mmol/L (136-145); THYROID STIMULATING HORMONE 8.28 uIU/mL (0.36-3.74); TOTAL PROTEIN, SERUM 6.2 g/dL (6.4-8.2); TRIGLYCERIDES 178 mg/dL (15-150); UREA NITROGEN, BLOOD 10 mg/dL (7-18)
[2024-07-06] MEDS: DIVALPROEX SODIUM 250 MG DR TABLET PO SCH (08:51)
[2024-07-06] MEDS: LevETIRAcetam 250 MG TABLET PO SCH (08:52)
[2024-07-06] MEDS ORDERED: PRAZ2 PO (09:56)
[2024-07-06] MEDS: LEVOTHYROXINE SODIUM 25 MCG TABLET PO SCH (10:34)
[2024-07-06] MEDS: LamoTRIgine 25 MG TABLET PO SCH (10:34)
[2024-07-06] MEDS: DOLUTEGRAVIR SODIUM 50 MG TABLET PO SCH (12:30)
[2024-07-06 20:08] VITALS: BP 155/86; PULSE 78; RESP 16; TEMP 97.8; O2SAT 98
[2024-07-06] MEDS: QUEtiapine FUMARATE 200 MG TABLET PO SCH (21:19)
[2024-07-06] MEDS: DIVALPROEX SODIUM 500 MG DR TABLET PO SCH (21:19)
[2024-07-06] MEDS: PRAZOSIN HCL 2 MG CAPSULE PO SCH (21:19)
[2024-07-07 08:20] VITALS: BP 120/74; PULSE 93; RESP 16; TEMP 98; O2SAT 98
[2024-07-07 08:31] LABS: HEMOGLOBIN A1C 5.6 % (3.8-5.6)
[2024-07-07 08:54] LABS: APPEARANCE,URINE HAZY (CLEAR); BILIRUBIN,URINE NEGATIVE (NEGATIVE); COLOR,URINE LIGHT YELLOW (YELLOW); GLUCOSE, URINE (UA) NEGATIVE (NEGATIVE); KETONES,URINE NEGATIVE (NEGATIVE); LEUKOCYTE ESTERASE ,URINE NEGATIVE (NEGATIVE); NITRATE,URINE NEGATIVE (NEGATIVE); OCCULT BLOOD,URINE NEGATIVE (NEGATIVE); PROTEIN,URINE NEGATIVE (NEGATIVE); SPECIFIC GRAVITIY, URINE 1.018 (1.003-1.030); UROBILINOGEN,URINE <=1.0 mg/dL (<=1.0)
[2024-07-07 08:57] LABS: CHOL/HDL RATIO 2.9 (3.9-5.7); THYROID STIMULATING HORMONE 5.44 uIU/mL (0.36-3.74)
[2024-07-07 09:02] LABS: AMPHET/METH SCREEN,URINE NEGATIVE (NEGATIVE); BARBITURATE SCREEN, URINE NEGATIVE (NEGATIVE); BENZODIAZEPINES SCREEN,URINE NEGATIVE (NEGATIVE); CANNABINOID SCREEN,URINE POSITIVE (NEGATIVE); COCAINE SCREEN,URINE NEGATIVE (NEGATIVE); METHADONE SCREEN, URINE NEGATIVE (NEGATIVE); OPIATE SCREEN,URINE NEGATIVE (NEGATIVE); PHENCYCLIDINE SCREEN,URINE NEGATIVE (NEGATIVE)
[2024-07-07 09:04] LABS: ALCOHOL, URINE DRUG SCREEN NEGATIVE (NEGATIVE)
[2024-07-07] MEDS: IBUPROFEN 400 MG TABLET PO PRN (22:13)
[2024-07-07 22:20] VITALS: RESP 18; TEMP 97.8; O2SAT 98
[2024-07-08 08:09] VITALS: BP 104/54; PULSE 86; RESP 18; TEMP 98.6; O2SAT 96
[2024-07-08 20:04] VITALS: BP 122/72; PULSE 80; RESP 18; TEMP 98.2; O2SAT 97
[2024-07-08] MEDS: ZOLPIDEM TARTRATE 10 MG TABLET PO PRN (22:00)
[2024-07-09 08:50] VITALS: BP 122/69; PULSE 86; RESP 18; TEMP 98; O2SAT 97
[2024-07-09] MEDS ORDERED: LEVO25TA9 PO (10:41)
[2024-07-09] MEDS ORDERED: LAMO25TA36 PO (10:41)
[2024-07-09] MEDS ORDERED: LEVE750T4 PO (10:41)
[2024-07-09] MEDS ORDERED: QUET300T2 PO (10:41)
[2024-07-09] MEDS ORDERED: DOLU50TA PO (10:41)
[2024-07-09] MEDS ORDERED: PRAZ2 PO (10:41)
[2024-07-09] MEDS ORDERED: DIVA-112 PO (10:41)
[2024-07-09] MEDS ORDERED: LAMI150T33 PO (10:41)
== END 2024-07-09 17:15 | disposition home or self-care (01) | DRG 750 ==
LOC: UNDOADMIN 15:53 → B3A 15:53
PROVIDERS: ADMIT Psychiatry & Neurology Psychiatry; ATTEND Psychiatry & Neurology Psychiatry
PROC: GZHZZZZ Group Psychotherapy (ICD-10-PCS; principal; 2024-07-06)
DX: F25.1 Schizoaffective disorder, depressive type (principal); R45.851 Suicidal ideations; G40.909 Epilepsy, unspecified, not intractable, without status epilepticus; F15.10 Other stimulant abuse, uncomplicated; F43.12 Post-traumatic stress disorder, chronic; E03.9 Hypothyroidism, unspecified; F12.10 Cannabis abuse, uncomplicated; Z88.1 Allergy status to other antibiotic agents; Z88.8 Allergy status to other drugs, medicaments and biological substances; Z79.899 Other long term (current) drug therapy; Z91.51 Personal history of suicidal behavior; Z21 Asymptomatic human immunodeficiency virus [HIV] infection status
CPT/HCPCS: 80053; 80061; 80307; 81003; 83036; 84439; 84443; 84703; 85025

== ENCOUNTER 2024-12-04 10:49 | Emergency (ER) | payer MEDICAID ==
[~2024-12-04] VITALS: Ht 153 cm; Wt 136.0 kg
[~2024-12-04 10:49] MED LIST changes: +ACET-2247 PO; -BACTDSB PO; -CEPH-558 PO; +DIVA-112 PO; +DOCU-385 PO; +DOLU50TA PO; -HALO5TAB23 PO; -IBUP-1492 PO; +LAMI150T33 PO; +LEVE250T81 PO; +LEVO25TA9 PO; +PRAZ2 PO; -QUET200T30 PO; +QUET300T19 PO
[2024-12-04 10:58] VITALS: TEMP 98.6
[2024-12-04 11:23] LABS: PLATELET COUNT (AUTO) 309 K/uL (150-450); RED BLOOD CELL COUNT(AUTO) 4.20 MIL/uL (4.00-5.20); RED CELL DISTRIBUTION WIDTH 14.7 % (11.5-14.5); WHITE BLOOD COUNT (AUTO) 7.7 K/uL (4.5-11.0)
[2024-12-04 11:42] LABS: CALCIUM, TOTAL 8.6 mg/dL (8.8-10.5); CREATININE 0.72 mg/dL (0.60-1.30); GLOMERULAR FILTR. RATE CALC > 60 mL/min (>60); GLUCOSE,RANDOM 101 mg/dL (70-110); SODIUM SERUM 140 mmol/L (136-145); UREA NITROGEN, BLOOD 10 mg/dL (7-18)
[2024-12-04 11:53] LABS: LACTIC ACID 1.4 mmol/L (0.4-2.0)
[2024-12-04 13:50] LABS: PH,URINE DRUG SCREEN 5.5 (5.0-8.0)
[2024-12-04 13:56] LABS: ALCOHOL, URINE DRUG SCREEN NEGATIVE (NEGATIVE); AMPHET/METH SCREEN,URINE NEGATIVE (NEGATIVE); BARBITURATE SCREEN, URINE NEGATIVE (NEGATIVE); CANNABINOID SCREEN,URINE NEGATIVE (NEGATIVE); COCAINE SCREEN,URINE NEGATIVE (NEGATIVE); METHADONE SCREEN, URINE NEGATIVE (NEGATIVE)
[2024-12-04] MEDS: LevETIRAcetam 750 MG in DEXTROSE 5%-WATER 100 ML IV ONE (14:03)
[2024-12-04] MEDS: SODIUM CHLORIDE 0.9% 1,000 ML IV ONE (14:04)
[2024-12-04 15:04] VITALS: BP 110/58; PULSE 87; RESP 14; O2SAT 96
== END 2024-12-04 15:18 | disposition home or self-care (01) ==
LOC: EMS 11:40
DX: G40.909 Epilepsy, unspecified, not intractable, without status epilepticus (principal); F20.9 Schizophrenia, unspecified; F31.9 Bipolar disorder, unspecified; F17.210 Nicotine dependence, cigarettes, uncomplicated; F15.90 Other stimulant use, unspecified, uncomplicated; Z98.890 Other specified postprocedural states; Z88.8 Allergy status to other drugs, medicaments and biological substances; Z79.899 Other long term (current) drug therapy; Z79.624 Long term (current) use of inhibitors of nucleotide synthesis
CPT/HCPCS: 99284; 96365; 80048; 83605; 85025; 36415; 93005; 80307; J0712; J7060; J7030

== ENCOUNTER 2024-12-24 12:29 | Emergency (ER) | payer BC, MEDICAID ==
[~2024-12-24] VITALS: Ht 152.4 cm; Wt 129.7 kg
[2024-12-24 12:44] VITALS: BP 123/87; PULSE 83; RESP 16; TEMP 98; O2SAT 94
[2024-12-24 12:54] LABS: PLATELET COUNT (AUTO) 260 K/uL (150-450); RED BLOOD CELL COUNT(AUTO) 4.51 MIL/uL (4.00-5.20); RED CELL DISTRIBUTION WIDTH 14.5 % (11.5-14.5); WHITE BLOOD COUNT (AUTO) 7.5 K/uL (4.5-11.0)
[2024-12-24 13:01] LABS: CALCIUM, TOTAL 8.7 mg/dL (8.8-10.5); CREATININE 0.81 mg/dL (0.60-1.30); GLOMERULAR FILTR. RATE CALC > 60 mL/min (>60); GLUCOSE,RANDOM 97 mg/dL (70-110); SODIUM SERUM 138 mmol/L (136-145); UREA NITROGEN, BLOOD 12 mg/dL (7-18)
[2024-12-24] MEDS: ACETAMINOPHEN 500 MG TABLET PO ONE (13:11)
[2024-12-24] MEDS ORDERED: RISP1TAB48 PO (13:35)
[2024-12-24] MEDS ORDERED: LEVE-71 PO (13:35)
[2024-12-24] MEDS ORDERED: HALO10TA21 PO (13:35)
[2024-12-24] MEDS ORDERED: QUET50TA24 PO (13:35)
[2024-12-24] MEDS ORDERED: TIRZ2.5P3 SQ (13:35)
[2024-12-24] MEDS ORDERED: DOLU1TAB2 PO (13:35)
[2024-12-24] MEDS ORDERED: QUET300T2 PO (13:35)
== END 2024-12-24 13:40 | disposition home or self-care (01) ==
LOC: EMS 12:29
DX: F41.9 Anxiety disorder, unspecified (principal); M54.9 Dorsalgia, unspecified; F20.9 Schizophrenia, unspecified; F31.9 Bipolar disorder, unspecified; G40.909 Epilepsy, unspecified, not intractable, without status epilepticus; F17.210 Nicotine dependence, cigarettes, uncomplicated; F15.90 Other stimulant use, unspecified, uncomplicated; Z98.890 Other specified postprocedural states; Z88.8 Allergy status to other drugs, medicaments and biological substances; Z79.899 Other long term (current) drug therapy; Z79.624 Long term (current) use of inhibitors of nucleotide synthesis; W22.01XA Walked into wall, initial encounter
CPT/HCPCS: 80048; 84703; 85025; 99283